=== PATIENT | male | born 1930 | race Caucasian/White ===

== ENCOUNTER 2018-05-27 18:04 | Inpatient (IN) ==
[2018-05-27] MEDS: rOPINIRole 1 MG TABLET PO SCH (21:24)
[2018-05-27] MEDS: Carbidopa/Levodopa 25/100 TABLET PO SCH (21:24)
[2018-05-27] MEDS: diazePAM 5 MG TABLET PO SCH (21:24)
[2018-05-27] MEDS: Mirtazapine 15 MG TABLET PO SCH (21:24)
[2018-05-28] MEDS: rOPINIRole 1 MG TABLET PO SCH ×3 (11:02→20:09)
[2018-05-28] MEDS: Loratadine 10 MG TABLET PO SCH (11:02)
[2018-05-28] MEDS: Metoprolol XL (24 HR) Succ 25 MG TAB.ER.24H PO SCH (11:02)
[2018-05-28] MEDS: Spironolactone 25 MG TABLET PO SCH (11:02)
[2018-05-28] MEDS: Fluticasone Propionate Nasal 50 MCG/SPRAY BOTTLE NS SCH (11:02)
[2018-05-28] MEDS: Carbidopa/Levodopa 25/100 TABLET PO SCH ×3 (11:02→20:08)
--- NOTE | 2018-05-28 12:17 | Internal Med History&Physical ---
Date of Encounter: 05/28/18 Time of Encounter: 11:45 Assessment and Plan (1) Hematuria Current visit: No Status: Acute Presently resolved. Continue indwelling Talamantes and follow up with urology as scheduled. Qualifiers: Hematuria type: unspecified type Qualified Code(s): R31.9 - Hematuria, unspecified (2) Enlarged prostate Current visit: No Status: Acute Continue Flomax and Proscar (3) General weakness Current visit: No Status: Acute PT and OT evaluation with ongoing interventions have been ordered (4) HTN (hypertension) Current visit: No Status: Acute Continue Cozaar, Toprol, and Aldactone. Qualifiers: Hypertension type: essential hypertension Qualified Code(s): I10 - Essential (primary) hypertension (5) Anemia Current visit: Yes Status: Acute Acute blood loss etiology. Hemoglobin normal at 13.5 on May 22. Continue to monitor labs. Qualifiers: Anemia type: unspecified type Qualified Code(s): D64.9 - Anemia, unspecified (6) Dysphagia Current visit: Yes Status: Acute Patient states he coughs when eating. Will order ST evaluation. Qualifiers: Dysphagia type: unspecified Qualified Code(s): R13.10 - Dysphagia, unspecified Internal Medicine - H&P: HPI Chief complaint: Hematuria Admitted From: Hospital to Hospital Transfer Plans for Post Hospital Care: Home History of present illness: Mr. Toro is a 87 year old male who was transferred to [facility] swing bed after May 22-May 27 [facility] stay for hematuria. He had cystoscopy and CBI initially. Urine culture was negative. Irrigation was discontinued and hematuria remained resolved. He was discharged to swing bed for rehabilitation therapy prior to returning to independent living at home. He is a fair to good historian. He does not remember some details of his history. He denies previous episode of hematuria. He has BPH but denies prostate cancer or other kidney or bladder disorders. Past Med Surg Social Fam HX - Past Medical History Medical history: hyperlipidemia, hypertension, myocardial infarction Additional medical history: unknown Psychiatric history: no psych history - Past Surgical History Surgical History: prostatectomy Additional surgical history: Cardiac stent x2, prostate sx - Social History Smoking Status: Former smoker Smokeless Tobacco Status: No Alcohol use: none Drug use: none - Family History Father Adopted: No Family Member Ethnicity: Non- Living Status: Hx Family Cardiac Disorders: No Hx Family Respiratory Disorders: Yes (BLACK LUNG) Hx Family Cancer: Yes (PROSTATE) Hx Family GI Disorders: No Hx Family Endocrine Disorder: No Hx Family Neuromuscular Disorders: No Hx Family Neurologic Disorders: No Hx Family HEENT Disorders: No Hx Family Autoimmune Disorders: No Internal Medicine - H&P: Meds Atorvastatin [Lipitor] 40 mg PO HS 05/22/18 [History] Carbidopa/Levodopa 25/100 [Sinemet 25/100] 1 tab PO TID 05/22/18 [History] Fluticasone Propionate Nasal [Flonase] 2 spr NS DAILY 05/22/18 [History] Loratadine [Allergy Relief] 10 mg PO DAILY 05/22/18 [History] Losartan [Cozaar] 25 mg PO DAILY 05/22/18 [History] Metoprolol Succinate [Toprol Xl] 25 mg PO DAILY 05/22/18 [History] Mirtazapine [Remeron] 45 mg PO HS 05/22/18 [History] Montelukast [Singulair] 10 mg PO DAILY 05/22/18 [History] Pantoprazole Sodium [Protonix] 40 mg PO DAILY 05/22/18 [History] Ropinirole HCl [Requip] 2 mg PO TID 05/22/18 [History] Spironolactone [Aldactone] 25 mg PO DAILY 05/22/18 [History] Tamsulosin HCl [Flomax] 0.4 mg PO DAILY 05/22/18 [History] diazePAM [Valium] 5 mg PO HS 05/22/18 [History] 3 Allergy/AdvReac Type Severity Reaction Status Date / Time No Known Allergies Allergy Verified 12/30/16 14:23 All Systems PM: A 10-system review of systems was performed and is negative for pertinent findings except as documented above in the HPI. Review of systems: Gen.: He states his weight has been stable the past few months Cardiovascular: He has history of hypertension. He had non-STEMI February 2015 with 2 LAD stents placed at [facility]. He denies heart failure DVT or pulmonary embolus. Respiratory: He smoked minimally in his 30s for approximately 3 years never exceeding 10 cigarettes per day. He denies chronic lung disease. He does not use home oxygen. GI: He denies disorders of his liver gallbladder or exocrine pancreas. : As per history of present illness Neurologic: He denies large distribution strokes or seizures. Endocrine: He denies diabetes thyroid disease or hyperlipidemia Hematology/oncology: He denies blood disorders cancers or anemia Psychiatric: He feels depressed since his and son within the past year. He denies other mental health diagnosis. [place] skeletal: He denies arthritis gout or other bone joint or muscle disorders. - Constitutional Vitals: Temp Pulse Resp BP Pulse Ox 98.5 F 60 18 146/71 94 05/28/18 07:37 05/28/18 07:37 05/28/18 07:37 05/28/18 07:37 05/28/18 07:37 Exam: Gen.: He is a well-developed well-nourished male resting comfortably in bed who appears in no acute distress HEENT: Head is atraumatic and normocephalic. Eyes: EOMI. There is no scleral icterus. Mouth: Mucosa is moist. Neck: Supple and nontender. There is no thyromegaly or adenopathy noted. Heart: Regular without murmurs gallops or ectopics Lungs: No wheezes or crackles are heard. Abdomen: Soft and nontender. No masses or guarding are noted. Extremities: There is no cyanosis edema or clubbing noted. Dorsalis pedis and posttibial pulses are 1-2 over 2 bilaterally. Neurologic: Mental status: He is talkative and a fair to good historian. Cranial nerves: Smile is symmetric. Forehead wrinkles bilaterally. Tongue protrudes midline. EOMI. Motor: There is no pronator drift. There is no tremor of his arms or hands. Cerebellar: Finger to nose is intact bilaterally. Skin: Warm and dry
[2018-05-28] MEDS: Mirtazapine 15 MG TABLET PO SCH (20:09)
[2018-05-28] MEDS: diazePAM 5 MG TABLET PO SCH (20:09)
[2018-05-29] MEDS: rOPINIRole 1 MG TABLET PO SCH ×3 (10:10→20:19)
[2018-05-29] MEDS: Spironolactone 25 MG TABLET PO SCH (10:11)
[2018-05-29] MEDS: Loratadine 10 MG TABLET PO SCH (10:11)
[2018-05-29] MEDS: Metoprolol XL (24 HR) Succ 25 MG TAB.ER.24H PO SCH (10:11)
[2018-05-29] MEDS: Carbidopa/Levodopa 25/100 TABLET PO SCH ×3 (10:11→20:18)
[2018-05-29] MEDS: Fluticasone Propionate Nasal 50 MCG/SPRAY BOTTLE NS SCH (10:18)
--- NOTE | 2018-05-29 12:53 | Internal Med Progress Note ---
Date of Encounter: 05/29/18 Time of Encounter: 12:45 - Assessment and plan (1) Hematuria Current Visit: No Status: Acute Assessment and plan: May 29. Remains resolved. Continue Talamantes a follow-up urology as scheduled. Qualifiers: Hematuria type: unspecified type Qualified Code(s): R31.9 - Hematuria, unspecified (2) Enlarged prostate Current Visit: No Status: Acute Assessment and plan: May 29. Continue Flomax and Proscar (3) General weakness Current Visit: No Status: Acute Assessment and plan: May 29. Continue therapy intervention (4) HTN (hypertension) Current Visit: No Status: Acute Assessment and plan: May 29. Continue Cozaar, Toprol, and Aldactone Qualifiers: Hypertension type: essential hypertension Qualified Code(s): I10 - Essential (primary) hypertension (5) Anemia Current Visit: Yes Status: Acute Assessment and plan: May 29. Acute blood loss etiology. Hemoglobin normal at 13.5 on May 22. Recheck labs in a.m. Qualifiers: Anemia type: unspecified type Qualified Code(s): D64.9 - Anemia, unspecified (6) Dysphagia Current Visit: Yes Status: Acute Assessment and plan: May 29. As per ST. Qualifiers: Dysphagia type: unspecified Qualified Code(s): R13.10 - Dysphagia, unspecified - Subjective Interval history: May 29. He has no new complaints. He was evaluated by ST with diet changes made. He inquired about duration of Talamantes catheter. - Constitutional Vitals: Temp Pulse Resp BP Pulse Ox 98.4 F 78 16 128/73 97 05/29/18 08:53 05/29/18 08:53 05/29/18 08:53 05/29/18 08:53 05/29/18 08:53 Exam: He is resting comfortably in bed and appears in no acute distress. His affect is overall cheerful. I reviewed his medications and lab results. Urine in Talamantes bag shows no visible hematuria. Consult Discharge Plan - Plan Referrals: Kei Duque MD [Primary Care Provider] - 1 week
[2018-05-29] MEDS: diazePAM 5 MG TABLET PO SCH (20:18)
[2018-05-29] MEDS: Mirtazapine 15 MG TABLET PO SCH (20:19)
[2018-05-30] MEDS: Carbidopa/Levodopa 25/100 TABLET PO SCH ×3 (09:24→21:06)
[2018-05-30] MEDS: Loratadine 10 MG TABLET PO SCH (09:24)
[2018-05-30] MEDS: Metoprolol XL (24 HR) Succ 25 MG TAB.ER.24H PO SCH (09:24)
[2018-05-30] MEDS: Spironolactone 25 MG TABLET PO SCH (09:24)
[2018-05-30] MEDS: rOPINIRole 1 MG TABLET PO SCH ×3 (09:24→21:08)
[2018-05-30] MEDS: Fluticasone Propionate Nasal 50 MCG/SPRAY BOTTLE NS SCH (09:25)
[2018-05-30] MEDS: diazePAM 5 MG TABLET PO SCH (21:06)
[2018-05-30] MEDS: Mirtazapine 15 MG TABLET PO SCH (21:08)
[2018-05-31] MEDS: Metoprolol XL (24 HR) Succ 25 MG TAB.ER.24H PO SCH (07:59)
[2018-05-31] MEDS: Loratadine 10 MG TABLET PO SCH (07:59)
[2018-05-31] MEDS: Carbidopa/Levodopa 25/100 TABLET PO SCH ×3 (07:59→20:45)
[2018-05-31] MEDS: Spironolactone 25 MG TABLET PO SCH (07:59)
[2018-05-31] MEDS: rOPINIRole 1 MG TABLET PO SCH ×3 (07:59→20:46)
[2018-05-31] MEDS: Fluticasone Propionate Nasal 50 MCG/SPRAY BOTTLE NS SCH (08:01)
--- NOTE | 2018-05-31 17:04 | Internal Med Progress Note ---
Date of Encounter: 05/31/18 Time of Encounter: 16:55 - Assessment and plan (1) Hematuria Current Visit: No Status: Acute Assessment and plan: May 29. Remains resolved. Continue Talamantes a follow-up urology as scheduled. Qualifiers: Hematuria type: unspecified type Qualified Code(s): R31.9 - Hematuria, unspecified (2) Enlarged prostate Current Visit: No Status: Acute Assessment and plan: May 29. Continue Flomax and Proscar (3) General weakness Current Visit: No Status: Acute Assessment and plan: May 29. Continue therapy intervention (4) HTN (hypertension) Current Visit: No Status: Acute Assessment and plan: May 29. Continue Cozaar, Toprol, and Aldactone Qualifiers: Hypertension type: essential hypertension Qualified Code(s): I10 - Essential (primary) hypertension (5) Anemia Current Visit: Yes Status: Acute Assessment and plan: May 29. Acute blood loss etiology. Hemoglobin normal at 13.5 on May 22. Recheck labs in a.m. May 31. Recheck labs in a.m. Qualifiers: Anemia type: unspecified type Qualified Code(s): D64.9 - Anemia, unspecified (6) Dysphagia Current Visit: Yes Status: Acute Assessment and plan: May 29. As per ST. Qualifiers: Dysphagia type: unspecified Qualified Code(s): R13.10 - Dysphagia, unspecified - Subjective Interval history: May 29. He has no new complaints. He was evaluated by ST with diet changes made. He inquired about duration of Talamantes catheter. May 31. He has no new complaints. - Constitutional Vitals: Temp Pulse Resp BP Pulse Ox 98.1 F 50 16 107/56 94 05/31/18 08:00 05/31/18 08:00 05/31/18 08:00 05/31/18 08:00 05/31/18 08:00 Exam: He is sitting on the side of bed eating supper. He has frequent coughing with swallowing. His affect is cheerful. I reviewed his medications and lab results. Consult Discharge Plan - Plan Referrals: Kei Duque MD [Primary Care Provider] - 1 week
[2018-05-31] MEDS: diazePAM 5 MG TABLET PO SCH (20:45)
[2018-05-31] MEDS: Mirtazapine 15 MG TABLET PO SCH (20:45)
[2018-06-01 06:27] LABS: Basophils % 0.7 %; Eosinophils # 0.2 K/mcL (0.0-0.6); Eosinophils % 3.8 %; Hematocrit 34.6 % (37.5-50.1); Hemoglobin 11.7 g/dL (12.9-16.9); Immature Granulocytes % 0.3 % (0-4); Lymphocytes # 1.6 K/mcL (0.6-4.6); Lymphocytes % 27.7 %; Mean Corpuscular HGB Conc 33.8 g/dL (31.6-35.5); Mean Corpuscular Hemoglobin 31.6 pg (28.0-33.3); Mean Corpuscular Volume 93.5 fL (83.0-100.0); Mean Platelet Volume 9.6 fL (9.4-12.4); Monocytes # 0.6 K/mcL (0.0-1.3); Monocytes % 9.4 %; Neutrophils # 3.4 K/mcL (1.6-8.9); Platelet Count 226 K/mcL (140-400); Red Cell Distribution Width 12.3 % (11.5-14.5); Segmented Neutrophils % 58.1 %
[2018-06-01 06:48] LABS: BUN/Creatinine Ratio 15 (6-26); Blood Urea Nitrogen 17 mg/dL (8-23); Calcium 8.8 mg/dL (8.6-10.3); Carbon Dioxide 30 mEq/L (23-29); Chloride 99 mEq/L (98-107); Chol/HDL Ratio 2.3 (0-4.9); Cholesterol 112 mg/dL (< 200); Glucose 102 mg/dL (70-105); HDL Cholesterol 48 mg/dL (40-59); LDL Cholesterol,Calculated 50 mg/dL (0-99); Osmolality,Calculated 276 (280-300); Potassium 4.1 mEq/L (3.5-5.1); Sodium 132 mEq/L (136-145); Triglycerides 71 mg/dL (< 150); eGFR For Non-African Americans 60 (> 60)
[2018-06-01] MEDS: Loratadine 10 MG TABLET PO SCH (09:24)
[2018-06-01] MEDS: Metoprolol XL (24 HR) Succ 25 MG TAB.ER.24H PO SCH (09:24)
[2018-06-01] MEDS: Spironolactone 25 MG TABLET PO SCH (09:25)
[2018-06-01] MEDS: rOPINIRole 1 MG TABLET PO SCH ×3 (09:25→20:50)
[2018-06-01] MEDS: Carbidopa/Levodopa 25/100 TABLET PO SCH ×3 (09:25→20:50)
[2018-06-01] MEDS: Fluticasone Propionate Nasal 50 MCG/SPRAY BOTTLE NS SCH (09:26)
[2018-06-01] MEDS: diazePAM 5 MG TABLET PO SCH (20:49)
[2018-06-01] MEDS: Mirtazapine 15 MG TABLET PO SCH (20:50)
[2018-06-02] MEDS: rOPINIRole 1 MG TABLET PO SCH ×3 (10:54→21:25)
[2018-06-02] MEDS: Metoprolol XL (24 HR) Succ 25 MG TAB.ER.24H PO SCH (10:54)
[2018-06-02] MEDS: Carbidopa/Levodopa 25/100 TABLET PO SCH ×3 (10:54→21:25)
[2018-06-02] MEDS: Loratadine 10 MG TABLET PO SCH (10:54)
[2018-06-02] MEDS: Spironolactone 25 MG TABLET PO SCH (10:54)
[2018-06-02] MEDS: Fluticasone Propionate Nasal 50 MCG/SPRAY BOTTLE NS SCH (16:43)
[2018-06-02] MEDS: diazePAM 5 MG TABLET PO SCH (21:26)
[2018-06-02] MEDS: Mirtazapine 15 MG TABLET PO SCH (21:26)
[2018-06-03] MEDS: Loratadine 10 MG TABLET PO SCH (09:05)
[2018-06-03] MEDS: Carbidopa/Levodopa 25/100 TABLET PO SCH ×3 (09:05→21:18)
[2018-06-03] MEDS: Fluticasone Propionate Nasal 50 MCG/SPRAY BOTTLE NS SCH (09:05)
[2018-06-03] MEDS: rOPINIRole 1 MG TABLET PO SCH ×3 (09:06→21:22)
--- NOTE | 2018-06-03 17:01 | Internal Med Progress Note ---
Date of Encounter: 06/03/18 Time of Encounter: 16:54 - Assessment and plan (1) Hematuria Current Visit: No Status: Acute Assessment and plan: May 29. Remains resolved. Continue Talamantes a follow-up urology as scheduled. June 03. Talamantes removed as per above. Qualifiers: Hematuria type: unspecified type Qualified Code(s): R31.9 - Hematuria, unspecified (2) Enlarged prostate Current Visit: No Status: Acute Assessment and plan: May 29. Continue Flomax and Proscar (3) General weakness Current Visit: No Status: Acute Assessment and plan: May 29. Continue therapy intervention (4) HTN (hypertension) Current Visit: No Status: Acute Assessment and plan: May 29. Continue Cozaar, Toprol, and Aldactone June 03. Medications discontinued yesterday because of hypotension. Blood pressure has risen to a satisfactory range. Qualifiers: Hypertension type: essential hypertension Qualified Code(s): I10 - Essential (primary) hypertension (5) Anemia Current Visit: Yes Status: Acute Assessment and plan: May 29. Acute blood loss etiology. Hemoglobin normal at 13.5 on May 22. Recheck labs in a.m. May 31. Recheck labs in a.m. June 03. Hemoglobin slightly improved to 11.7. Continue present regimen. Qualifiers: Anemia type: unspecified type Qualified Code(s): D64.9 - Anemia, unspecified (6) Dysphagia Current Visit: Yes Status: Acute Assessment and plan: May 29. As per ST. Qualifiers: Dysphagia type: unspecified Qualified Code(s): R13.10 - Dysphagia, unspecified - Subjective Interval history: May 29. He has no new complaints. He was evaluated by ST with diet changes made. He inquired about duration of Talamantes catheter. May 31. He has no new complaints. June 03. He has no new complaints and feels well. The Talamantes catheter was removed by urology at the office visit 2 days ago. He is voiding satisfactorily without visible hematuria. - Constitutional Vitals: Temp Pulse Resp BP Pulse Ox 98.1 F 60 16 118/62 96 06/03/18 07:16 06/03/18 07:16 06/03/18 07:16 06/03/18 07:16 06/03/18 07:16 Exam: He is resting comfortably in bed and appears in no acute distress. His affect is bright and cheerful. I reviewed his medications and lab results. Internal Medicine: Result - Labs CBC & Chem 7: 06/01/18 05:10 06/01/18 05:10 Consult Discharge Plan - Plan Referrals: Kei Duque MD [Primary Care Provider] - 1 week
[2018-06-03] MEDS: Mirtazapine 15 MG TABLET PO SCH (21:22)
[2018-06-03] MEDS: diazePAM 5 MG TABLET PO SCH (21:22)
[2018-06-04 07:13] VITALS: BP 144/71
[2018-06-04] MEDS: Loratadine 10 MG TABLET PO SCH (08:12)
[2018-06-04] MEDS: Fluticasone Propionate Nasal 50 MCG/SPRAY BOTTLE NS SCH (08:12)
[2018-06-04] MEDS: rOPINIRole 1 MG TABLET PO SCH (08:12)
[2018-06-04] MEDS: Carbidopa/Levodopa 25/100 TABLET PO SCH (08:12)
--- NOTE | 2018-06-04 10:23 | Discharge Summary ---
Date of Encounter: 06/04/18 Time of Encounter: 10:15 - Discharge Diagnosis (1) Hematuria Priority: Primary Status: Resolved Qualifiers: Hematuria type: unspecified type Qualified Code(s): R31.9 - Hematuria, unspecified (2) Enlarged prostate Priority: Secondary Status: Chronic (3) General weakness Priority: Secondary Status: Chronic (4) HTN (hypertension) Priority: Secondary Status: Chronic Qualifiers: Hypertension type: essential hypertension Qualified Code(s): I10 - Essential (primary) hypertension (5) Anemia Priority: Secondary Status: Acute Qualifiers: Anemia type: unspecified type Qualified Code(s): D64.9 - Anemia, unspecified (6) Dysphagia Priority: Secondary Status: Chronic Qualifiers: Dysphagia type: unspecified Qualified Code(s): R13.10 - Dysphagia, unspecified Hospital course: Mr. Toro is a 87 year old male who was transferred to [facility] swing bed after May 22-May 27 [facility] stay for hematuria. He had cystoscopy and CBI initially. Urine culture was negative. Irrigation was discontinued and hematuria remained resolved. He was discharged to swing bed for rehabilitation therapy prior to returning to independent living at home. Initial orders were written by the discharging physicians at [facility]. I saw him on May 28 and performed a swing bed history and physical. The Talamantes catheter was removed during a visit with urology. He had no further visible hematuria and was able to void satisfactorily. Blood pressure showed hypotension so Cozaar Toprol and Aldactone were held. He will restart Toprol at discharge but remain off Cozaar and Aldactone. Speech/swallowing evaluation with ongoing intervention was done and he made some improvements in dysphagia. He was also seen by physical therapy and occupational therapy with satisfactory improvement during his swing bed stay. On June 04 he was stable for discharge home. He will follow with his PCP within 1 week. - Time Spent with Patient Total time spent providing and/or coordinating discharge services: - Discharge Medications Home Medications: Atorvastatin [Lipitor] 40 mg PO HS 05/22/18 [History] Carbidopa/Levodopa 25/100 [Sinemet 25/100] 1 tab PO TID 05/22/18 [History] Fluticasone Propionate Nasal [Flonase] 2 spr NS DAILY 05/22/18 [History] Loratadine [Allergy Relief] 10 mg PO DAILY 05/22/18 [History] Metoprolol Succinate [Toprol Xl] 25 mg PO DAILY 05/22/18 [History] Mirtazapine [Remeron] 45 mg PO HS 05/22/18 [History] Montelukast [Singulair] 10 mg PO DAILY 05/22/18 [History] Pantoprazole Sodium [Protonix] 40 mg PO DAILY 05/22/18 [History] Ropinirole HCl [Requip] 2 mg PO TID 05/22/18 [History] Tamsulosin HCl [Flomax] 0.4 mg PO DAILY 05/22/18 [History] diazePAM [Valium] 5 mg PO HS 05/22/18 [History] Allergies/Adverse Reactions: 3 Allergy/AdvReac Type Severity Reaction Status Date / Time No Known Allergies Allergy Verified 12/30/16 14:23 Date of admission: 05/27/18 19:30 Primary care physician: Kei Duque MD Consults: 05/27/18 19:03 Consult to Occupational Therapy [CONS] Routine Comment: Evaluate, develop and implement POC Reason for Consult: weakness Does patient have active BEDREST order?: No Is patient medically & hemodynamically stable?: Yes Consult to Physical Therapy [CONS] Routine Comment: Evaluate, develop and implement POC Reason for Consult: weakness Does patient have active BEDREST order?: No Is patient medically & hemodynamically stable?: Yes 05/28/18 10:51 Consult to Speech Therapy [CONS] Routine Comment: Evaluate, develop and implement POC Reason for Consult: cognitive impairment, dysarthria Call Completed: No - Constitutional Vitals: Temp Pulse Resp BP Pulse Ox 97.5 F L 71 14 144/71 95 06/04/18 07:10 06/04/18 07:10 06/04/18 07:10 06/04/18 07:10 06/04/18 07:10 - Patient Status Disposition: Home Health Service - Discharge Instructions Follow Up With: Kei Duque MD [Primary Care Provider] - 1 week - Diet and Activity Activity: as per physical therapy Diet: other (Soft diet with no straws.)
--- NOTE | 2018-06-04 10:31 | Physician Discharge Referral ---
Home Health/Hosp Referral Info Transfer to: Home Health Attending Provider: Gavin Provider in Charge Post Discharge: PCP [place]) - Diagnosis (1) Hematuria Priority: Primary Status: Resolved (2) Enlarged prostate Priority: Secondary Status: Chronic (3) General weakness Priority: Secondary Status: Chronic (4) HTN (hypertension) Priority: Secondary Status: Chronic (5) Anemia Priority: Secondary Status: Acute (6) Dysphagia Priority: Secondary Status: Chronic - Respiratory Orders Smoking Cessation: Smoking cessation has been advised. For more information, call the [place] Tobacco Quit Line at 0-405-YOJM-NOW. - Diet/Nutrition Diet/Nutrition Orders: Mechanical Soft (No straws) - Activity Activity Orders: Ambulate - Services Needed Following services are medically necessary services: Nursing, Home Health Aide, Physical Therapy, Occupational Therapy - Transfer Medications Home Medications: Atorvastatin [Lipitor] 40 mg PO HS 05/22/18 [History] Carbidopa/Levodopa 25/100 [Sinemet 25/100] 1 tab PO TID 05/22/18 [History] Fluticasone Propionate Nasal [Flonase] 2 spr NS DAILY 05/22/18 [History] Loratadine [Allergy Relief] 10 mg PO DAILY 05/22/18 [History] Metoprolol Succinate [Toprol Xl] 25 mg PO DAILY 05/22/18 [History] Mirtazapine [Remeron] 45 mg PO HS 05/22/18 [History] Montelukast [Singulair] 10 mg PO DAILY 05/22/18 [History] Pantoprazole Sodium [Protonix] 40 mg PO DAILY 05/22/18 [History] Ropinirole HCl [Requip] 2 mg PO TID 05/22/18 [History] Tamsulosin HCl [Flomax] 0.4 mg PO DAILY 05/22/18 [History] diazePAM [Valium] 5 mg PO HS 05/22/18 [History] Allergies/Adverse Reactions: 3 Allergy/AdvReac Type Severity Reaction Status Date / Time No Known Allergies Allergy Verified 12/30/16 14:23 Certification: Further, I certify that my clinical findings support that this patient is homebound (i.e. absences from home require considerable and taxing effort and are for medical reasons or congregational services or infrequently or short duration when for other reasons) because: Homebound Reason: Leaving home requires considerable and taxing effort due to condition (Impaired walking ability, anemia) Attestation: My signature below is to certify that this patient is under my care and that I, or nurse practitioner, or a physician's assistant golf course superintendent working with me, has a face-to -face encounter with this patient.
== END 2018-06-04 11:50 | disposition home health service (06) | DRG 945 ==
LOC: INPPIK 19:30
PROVIDERS: ADMIT Internal Medicine; ATTEND Internal Medicine

== ENCOUNTER 2019-01-18 15:10 | Inpatient (IN) ==
[2019-01-18] MEDS ORDERED: Nitroglycerin 0.4 MG TAB.SUBL SL PRN (16:23)
[2019-01-18] MEDS: Nitrofurantoin (BID) 100 MG CAPSULE PO SCH (21:30)
[2019-01-18] MEDS: Carbidopa/Levodopa 25/100 TABLET PO SCH (21:30)
[2019-01-18] MEDS: Mirtazapine 15 MG TABLET PO SCH (21:30)
[2019-01-18] MEDS: rOPINIRole 1 MG TABLET PO SCH (21:30)
[2019-01-18] MEDS: (Ipratropium/Albuterol Sulfate [Combivent Respimat 20 IH SCH (23:18)
[2019-01-19] MEDS: (Ipratropium/Albuterol Sulfate [Combivent Respimat 20 IH SCH ×5 (02:15→21:06)
[2019-01-19 06:15] LABS: Basophils % 0.4 %; Eosinophils # 0.2 K/mcL (0.0-0.6); Eosinophils % 2.5 %; Hematocrit 39.8 % (37.5-50.1); Hemoglobin 12.8 g/dL (12.9-16.9); Immature Granulocytes % 0.6 % (0-4); Lymphocytes # 1.2 K/mcL (0.6-4.6); Lymphocytes % 14.4 %; Mean Corpuscular HGB Conc 32.2 g/dL (31.6-35.5); Mean Corpuscular Hemoglobin 29.2 pg (28.0-33.3); Mean Corpuscular Volume 90.9 fL (83.0-100.0); Mean Platelet Volume 10.2 fL (9.4-12.4); Monocytes # 0.6 K/mcL (0.0-1.3); Monocytes % 6.5 %; Neutrophils # 6.5 K/mcL (1.6-8.9); Platelet Count 251 K/mcL (140-400); Red Blood Count 4.38 M/mcL (4.19-5.50); Segmented Neutrophils % 75.6 %
[2019-01-19 06:32] LABS: INR 1.2
[2019-01-19] MEDS: Carbidopa/Levodopa 25/100 TABLET PO SCH ×3 (08:09→21:06)
[2019-01-19] MEDS: Spironolactone 25 MG TABLET PO SCH (08:10)
[2019-01-19] MEDS: levoFLOXacin 500 MG TABLET PO SCH (08:10)
[2019-01-19] MEDS: rOPINIRole 1 MG TABLET PO SCH ×3 (08:10→21:06)
[2019-01-19] MEDS: Nitrofurantoin (BID) 100 MG CAPSULE PO SCH ×2 (08:13→21:07)
[2019-01-19] MEDS: Fluticasone Propionate Nasal 50 MCG/SPRAY BOTTLE NS SCH (08:14)
--- NOTE | 2019-01-19 17:31 | Internal Med History&Physical ---
Date of Encounter: 01/19/19 Time of Encounter: 17:00 Assessment and Plan (1) Pneumonia Current visit: No Status: Acute Continue Levaquin through 01/20/2019. Add lactobacillus. Qualifiers: Pneumonia type: due to unspecified organism Laterality: bilateral Lung location: unspecified part of lung Qualified Code(s): J18.9 - Pneumonia, unspecified organism (2) UTI (urinary tract infection) due to Enterococcus Current visit: No Status: Acute Continue Macrobid through 01/28/2019. (3) Enlarged prostate Current visit: No Status: Chronic Continue Flomax and Proscar (4) General weakness Current visit: No Status: Chronic PT and OT evaluations with ongoing intervention have been ordered. (5) HTN (hypertension) Current visit: No Status: Chronic Continue Aldactone and monitor labs. Qualifiers: Hypertension type: essential hypertension Qualified Code(s): I10 - Essential (primary) hypertension (6) Anemia Current visit: No Status: Acute Anemia testing will be done in a.m. Qualifiers: Anemia type: unspecified type Qualified Code(s): D64.9 - Anemia, unspecified Internal Medicine - H&P: HPI Chief complaint: Pneumonia, weakness, UTI Admitted From: Hospital to Hospital Transfer Plans for Post Hospital Care: Home History of present illness: Mr. Toro is a 88 year old male who was transferred to [facility] swing bed following January 13 [facility] stay for pneumonia and UTI with hematuria. Urine culture showed Enterococcus faecalis. He was felt to have enlarged prostate and Proscar was added to Flomax. He was treated with IV vancomycin and Zosyn for pneumonia. He was discharged to swing bed on Levaquin and Macrobid. history is pertinent otherwise for prostatic enlargement with greenlight photo vaporization 2011. He was hospitalized to [facility] swing bed May 2018 following a hospitalization at [facility] for hematuria. Cystoscopy was done during the [facility] stay. Past Med Surg Social Fam HX - Past Medical History Medical history: GERD, hyperlipidemia, hypertension, myocardial infarction Additional medical history: parkinson's Psychiatric history: no psych history - Past Surgical History Surgical History: prostatectomy Additional surgical history: Cardiac stent x2, prostate sx - Social History Smoking Status: Former smoker Smokeless Tobacco Status: No Alcohol use: none Drug use: none - Family History Father Adopted: No Family Member Ethnicity: Non- Living Status: Hx Family Cardiac Disorders: No Hx Family Respiratory Disorders: Yes (BLACK LUNG) Hx Family Cancer: Yes (PROSTATE) Hx Family GI Disorders: No Hx Family Endocrine Disorder: No Hx Family Neuromuscular Disorders: No Hx Family Neurologic Disorders: No Hx Family HEENT Disorders: No Hx Family Autoimmune Disorders: No Internal Medicine - H&P: Meds Atorvastatin [Lipitor] 40 mg PO DAILY 05/22/18 [History] Carbidopa/Levodopa 25/100 [Sinemet 25/100] 2 tab PO TID 05/22/18 [History] Fluticasone Propionate Nasal [Flonase] 2 spr NS DAILY 05/22/18 [History] Loratadine [Allergy Relief] 10 mg PO DAILY 05/22/18 [History] Metoprolol Succinate [Toprol Xl] 25 mg PO DAILY 05/22/18 [History] Montelukast [Singulair] 10 mg PO DAILY 05/22/18 [History] Pantoprazole Sodium [Protonix] 40 mg PO DAILY 05/22/18 [History] Ropinirole HCl [Requip] 2 mg PO TID 05/22/18 [History] Tamsulosin HCl [Flomax] 0.4 mg PO DAILY 05/22/18 [History] Ipratropium/Albuterol Sulfate [Combivent Respimat 20-100 Mcg] 2 puff IH QID 01/13/19 [History] Losartan Potassium 25 mg PO DAILY 01/13/19 [History] Mirtazapine 45 mg PO HS 01/13/19 [History] Nitroglycerin 0.4 mg SL Q5M PRN 01/13/19 [History] Spironolactone [Aldactone] 25 mg PO DAILY 01/13/19 [History] Levofloxacin [Levaquin] 500 mg PO DAILY 2 Days #2 tablet 01/18/19 [Rx] Nitrofurantoin (BID) [Macrobid] 100 mg PO BID 10 Days #20 capsule 01/18/19 [Rx] diazePAM [Valium] 5 mg PO HS 3 Days #3 tablet 01/18/19 [Rx] Allergy/AdvReac Type Severity Reaction Status Date / Time No Known Allergies Allergy Verified 12/30/16 14:23 All Systems PM: A 10-system review of systems was performed and is negative for pertinent findings except as documented above in the HPI. Review of systems: Review of systems from his May 2018 [facility] swing bed stay were reviewed and revised as below. He is a challenging historian due to impaired speech and probable dementia. Gen.: His weight has been stable at approximate 68 kg since May 2018 hospitalization. Cardiovascular: He has history of hypertension. He had non-STEMI February 2015 with 2 LAD stents placed at [facility]. He denies heart failure DVT or pulmonary embolus. Respiratory: He smoked minimally in his 30s for approximately 3 years never exceeding 10 cigarettes per day. He denies chronic lung disease. He does not use home oxygen. GI: He denies disorders of his liver gallbladder or exocrine pancreas. : As per history of present illness Neurologic: He denies large distribution strokes or seizures. Endocrine: He denies diabetes thyroid disease or hyperlipidemia Hematology/oncology: He denies blood disorders cancers or anemia Psychiatric: He feels depressed since his and son within the past year. He denies other mental health diagnosis. [place] skeletal: He denies arthritis gout or other bone joint or muscle disorders. - Constitutional Vitals: Temp Pulse Resp BP Pulse Ox 97.4 F L 68 20 131/73 95 01/19/19 06:53 01/19/19 06:53 01/19/19 06:53 01/19/19 06:53 01/19/19 06:53 Exam: Gen.: He is a well-developed well-nourished male resting comfortably in bed who appears in no acute distress. He denies pain but states he is slightly dyspneic HEENT: Head is atraumatic and normocephalic. Eyes: EOMI. There is no scleral icterus. Mouth: Mucosa is moist. Neck: Supple and nontender. There is no thyromegaly or adenopathy noted. Heart: Regular without murmurs gallops or ectopics Lungs: No wheezes or crackles are heard. Abdomen: Soft and nontender. No masses or guarding are noted. Extremities: There is no cyanosis edema or clubbing noted. Dorsalis pedis and posterior tibial pulses are trace to 1+ palpable bilaterally. 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 Neurologic: Mental status: He answers a few questions with short answers but is a fair to poor historian. His speech is difficult to understand. He does not recall many details of his past history. Cranial nerves: Smile is symmetric. Forehead wrinkles bilaterally. Tongue protrudes midline. EOMI. Motor: There is no pronator drift. There is no cogwheeling or rigidity on passive range of motion of his wrist or elbows. Cerebellar: Finger to nose is intact bilaterally. Skin: Warm and dry Internal Med - H&P Results - Labs CBC & Chem 7: 01/19/19 04:50 Labs: Short CBC 01/19/19 Range/Units 04:50 WBC 8.5 (4.3-11.1) K/mcL Hgb 12.8 L (12.9-16.9) g/dL Hct 39.8 (37.5-50.1) % Plt Count 251 (140-400) K/mcL Neutrophils # 6.5 (1.6-8.9) K/mcL
[2019-01-19] MEDS: Lactobacillus 1 EACH CAP.SPRINK PO SCH (21:06)
[2019-01-19] MEDS: Mirtazapine 15 MG TABLET PO SCH (21:53)
[2019-01-20 05:23] LABS: Basophils % 0.4 %; Eosinophils # 0.2 K/mcL (0.0-0.6); Eosinophils % 2.1 %; Hematocrit 39.6 % (37.5-50.1); Hemoglobin 12.9 g/dL (12.9-16.9); Immature Granulocytes % 0.6 % (0-4); Lymphocytes # 1.2 K/mcL (0.6-4.6); Lymphocytes % 15.3 %; Mean Corpuscular HGB Conc 32.6 g/dL (31.6-35.5); Mean Corpuscular Hemoglobin 29.5 pg (28.0-33.3); Mean Corpuscular Volume 90.4 fL (83.0-100.0); Mean Platelet Volume 10.1 fL (9.4-12.4); Monocytes # 0.5 K/mcL (0.0-1.3); Monocytes % 6.6 %; Platelet Count 255 K/mcL (140-400); Red Blood Count 4.38 M/mcL (4.19-5.50)
[2019-01-20] MEDS: Carbidopa/Levodopa 25/100 TABLET PO SCH ×3 (08:20→19:38)
[2019-01-20] MEDS: rOPINIRole 1 MG TABLET PO SCH ×3 (08:20→19:38)
[2019-01-20] MEDS: Lactobacillus 1 EACH CAP.SPRINK PO SCH ×2 (08:21→19:39)
[2019-01-20] MEDS: Finasteride 5 MG TABLET PO SCH (08:21)
[2019-01-20] MEDS: Nitrofurantoin (BID) 100 MG CAPSULE PO SCH ×2 (08:21→19:39)
[2019-01-20] MEDS: Spironolactone 25 MG TABLET PO SCH (08:21)
[2019-01-20] MEDS: Fluticasone Propionate Nasal 50 MCG/SPRAY BOTTLE NS SCH (08:21)
[2019-01-20] MEDS: levoFLOXacin 500 MG TABLET PO SCH (08:21)
[2019-01-20] MEDS: (Ipratropium/Albuterol Sulfate [Combivent Respimat 20 IH SCH ×4 (09:10→19:39)
[2019-01-20 09:20] LABS: % Iron Saturation 27 % (20-55); Iron 74 mcg/dL (65-175); Transferrin 198 mg/dL (203-362)
[2019-01-20 09:38] LABS: Ferritin 79 ng/mL (20-250)
[2019-01-20 09:43] LABS: Folate 13.4 ng/mL (3.0-16.0)
--- NOTE | 2019-01-20 12:36 | Internal Med Progress Note ---
Date of Encounter: 01/20/19 Time of Encounter: 12:30 - Assessment and plan (1) Pneumonia Current Visit: No Status: Acute Assessment and plan: January 20. Discontinue Levaquin. Qualifiers: Pneumonia type: due to unspecified organism Laterality: bilateral Lung location: unspecified part of lung Qualified Code(s): J18.9 - Pneumonia, unspecified organism (2) UTI (urinary tract infection) due to Enterococcus Current Visit: No Status: Acute Assessment and plan: January 20. Continue Macrobid with lactobacillus through 01/28/2019. (3) Enlarged prostate Current Visit: No Status: Chronic Assessment and plan: January 28. Continue Flomax and Proscar (4) General weakness Current Visit: No Status: Chronic Assessment and plan: January 28. Continue PT and OT intervention. (5) HTN (hypertension) Current Visit: No Status: Chronic Assessment and plan: January 28. Continue Aldactone and monitor labs. Qualifiers: Hypertension type: essential hypertension Qualified Code(s): I10 - Essential (primary) hypertension (6) Anemia Current Visit: No Status: Acute Assessment and plan: January 28. Hemoglobin stable at 12.9. Anemia testing shows iron 74, transferrin saturation 27%, transferrin 198, ferritin 79, B12 443, and folate 13.4. Qualifiers: Anemia type: unspecified type Qualified Code(s): D64.9 - Anemia, unspecified - Subjective Interval history: January 20. He has no new complaints. - Constitutional Vitals: Temp Pulse Resp BP Pulse Ox 97.8 F 70 20 137/75 97 01/20/19 07:39 01/20/19 07:39 01/20/19 07:39 01/20/19 07:39 01/20/19 07:39 Exam: He is resting comfortably in bed and appears in no acute distress. His affect is overall cheerful. I reviewed his medications and lab results. Internal Medicine: Result - Labs CBC & Chem 7: 01/20/19 05:01 Labs: Short CBC 01/20/19 Range/Units 05:01 WBC 8.1 (4.3-11.1) K/mcL Hgb 12.9 (12.9-16.9) g/dL Hct 39.6 (37.5-50.1) % Plt Count 255 (140-400) K/mcL Neutrophils # 6.0 (1.6-8.9) K/mcL - ABG Interpretation ABG results: PT/INR, D-dimer PT 13.0 Seconds (9.4-12.1) H 01/19/19 04:50 Consult Discharge Plan - Plan Referrals: Kei Duque MD [Primary Care Provider] - 1 week
[2019-01-20] MEDS ORDERED: ALPRAZolam 0.5 MG TABLET PO ONE (19:03)
[2019-01-20] MEDS: Mirtazapine 15 MG TABLET PO SCH (19:39)
[2019-01-21] MEDS: Carbidopa/Levodopa 25/100 TABLET PO SCH ×3 (07:32→19:51)
[2019-01-21] MEDS: Spironolactone 25 MG TABLET PO SCH (07:32)
[2019-01-21] MEDS: levoFLOXacin 500 MG TABLET PO SCH (07:32)
[2019-01-21] MEDS: rOPINIRole 1 MG TABLET PO SCH ×3 (07:32→19:51)
[2019-01-21] MEDS: Lactobacillus 1 EACH CAP.SPRINK PO SCH ×2 (07:32→19:52)
[2019-01-21] MEDS: Fluticasone Propionate Nasal 50 MCG/SPRAY BOTTLE NS SCH (07:32)
[2019-01-21] MEDS: (Ipratropium/Albuterol Sulfate [Combivent Respimat 20 IH SCH ×4 (07:32→19:52)
[2019-01-21] MEDS: Finasteride 5 MG TABLET PO SCH (07:32)
[2019-01-21] MEDS: Nitrofurantoin (BID) 100 MG CAPSULE PO SCH ×2 (07:32→19:51)
--- NOTE | 2019-01-21 15:16 | Internal Med Progress Note ---
Date of Encounter: 01/21/19 Time of Encounter: 15:07 - Assessment and plan (1) Pneumonia Current Visit: No Status: Acute Assessment and plan: January 20. Discontinue Levaquin. Qualifiers: Pneumonia type: due to unspecified organism Laterality: bilateral Lung location: unspecified part of lung Qualified Code(s): J18.9 - Pneumonia, unspecified organism (2) UTI (urinary tract infection) due to Enterococcus Current Visit: No Status: Acute Assessment and plan: January 20. Continue Macrobid with lactobacillus through 01/28/2019. (3) Enlarged prostate Current Visit: No Status: Chronic Assessment and plan: January 28. Continue Flomax and Proscar (4) General weakness Current Visit: No Status: Chronic Assessment and plan: January 28. Continue PT and OT intervention. (5) HTN (hypertension) Current Visit: No Status: Chronic Assessment and plan: January 28. Continue Aldactone and monitor labs. Qualifiers: Hypertension type: essential hypertension Qualified Code(s): I10 - Essential (primary) hypertension (6) Anemia Current Visit: No Status: Acute Assessment and plan: January 28. Hemoglobin stable at 12.9. Anemia testing shows iron 74, transferrin saturation 27%, transferrin 198, ferritin 79, B12 443, and folate 13.4. Qualifiers: Anemia type: unspecified type Qualified Code(s): D64.9 - Anemia, unspecified - Subjective Interval history: January 20. He has no new complaints. January 21. He was agitated yesterday made threatening comments toward healthcare professionals in [place]. He has lessened agitation and has no specific complaints today. - Constitutional Vitals: Temp Pulse Resp BP Pulse Ox 97.3 F L 77 26 133/74 97 01/21/19 06:29 01/21/19 06:29 01/21/19 06:29 01/21/19 06:29 01/21/19 06:29 Exam: Is resting comfortably in bed and appears in no acute distress. His speech is difficult to understand. His affect is flat. He is not agitated. MMSE shows scored 27/30. I reviewed his medications and lab results. Internal Medicine: Result - Labs CBC & Chem 7: 01/20/19 05:01 - ABG Interpretation ABG results: PT/INR, D-dimer PT 13.0 Seconds (9.4-12.1) H 01/19/19 04:50 Consult Discharge Plan - Plan Referrals: Kei Duque MD [Primary Care Provider] - 1 week
[2019-01-21] MEDS: ALPRAZolam 0.5 MG TABLET PO PRN (16:38)
[2019-01-21] MEDS: Mirtazapine 15 MG TABLET PO SCH (19:51)
[2019-01-22] MEDS: (Ipratropium/Albuterol Sulfate [Combivent Respimat 20 IH SCH ×4 (08:47→20:17)
[2019-01-22] MEDS: Finasteride 5 MG TABLET PO SCH (09:22)
[2019-01-22] MEDS: Spironolactone 25 MG TABLET PO SCH (09:23)
[2019-01-22] MEDS: rOPINIRole 1 MG TABLET PO SCH ×3 (09:23→20:17)
[2019-01-22] MEDS: Fluticasone Propionate Nasal 50 MCG/SPRAY BOTTLE NS SCH (09:23)
[2019-01-22] MEDS: Carbidopa/Levodopa 25/100 TABLET PO SCH ×3 (09:23→20:17)
[2019-01-22] MEDS: levoFLOXacin 500 MG TABLET PO SCH (09:23)
[2019-01-22] MEDS: Lactobacillus 1 EACH CAP.SPRINK PO SCH ×2 (09:23→20:16)
[2019-01-22] MEDS: Nitrofurantoin (BID) 100 MG CAPSULE PO SCH ×2 (09:25→20:16)
--- NOTE | 2019-01-22 14:19 | Internal Med Progress Note ---
Date of Encounter: 01/22/19 Time of Encounter: 14:00 - Assessment and plan (1) Pneumonia Current Visit: No Status: Acute Assessment and plan: January 20. Discontinue Levaquin. Qualifiers: Pneumonia type: due to unspecified organism Laterality: bilateral Lung location: unspecified part of lung Qualified Code(s): J18.9 - Pneumonia, unspecified organism (2) UTI (urinary tract infection) due to Enterococcus Current Visit: No Status: Acute Assessment and plan: January 20. Continue Macrobid with lactobacillus through 01/28/2019. (3) Enlarged prostate Current Visit: No Status: Chronic Assessment and plan: January 21. Continue Flomax and Proscar (4) General weakness Current Visit: No Status: Chronic Assessment and plan: January 21. Continue PT and OT intervention. (5) HTN (hypertension) Current Visit: No Status: Chronic Assessment and plan: January 21. Continue Aldactone and monitor labs. Qualifiers: Hypertension type: essential hypertension Qualified Code(s): I10 - Essential (primary) hypertension (6) Anemia Current Visit: No Status: Acute Assessment and plan: January 21. Hemoglobin stable at 12.9. Anemia testing shows iron 74, transferrin saturation 27%, transferrin 198, ferritin 79, B12 443, and folate 13.4. Qualifiers: Anemia type: unspecified type Qualified Code(s): D64.9 - Anemia, unspecified - Subjective Interval history: January 20. He has no new complaints. January 21. He was agitated yesterday made threatening comments toward healthcare professionals in [place]. He has lessened agitation and has no specific complaints today. January 22. He has no new complaints. - Constitutional Vitals: Temp Pulse Resp BP Pulse Ox 98.3 F 75 28 127/69 96 01/22/19 06:37 01/22/19 06:37 01/22/19 06:37 01/22/19 06:37 01/22/19 06:37 Exam: He is resting comfortably in bed and appears in no acute distress. His affect is bright and cheerful. He does not seem agitated at all now. I reviewed his medications and lab results. Internal Medicine: Result - Labs CBC & Chem 7: 01/20/19 05:01 - ABG Interpretation ABG results: PT/INR, D-dimer PT 13.0 Seconds (9.4-12.1) H 04/30/19 04:50 Consult Discharge Plan - Plan Referrals: Kei Duque MD [Primary Care Provider] - 1 week
[2019-01-22] MEDS: ALPRAZolam 0.5 MG TABLET PO PRN (16:36)
[2019-01-22] MEDS: Mirtazapine 15 MG TABLET PO SCH (20:17)
[2019-01-23] MEDS: Fluticasone Propionate Nasal 50 MCG/SPRAY BOTTLE NS SCH (08:14)
[2019-01-23] MEDS: rOPINIRole 1 MG TABLET PO SCH ×3 (08:15→19:54)
[2019-01-23] MEDS: Lactobacillus 1 EACH CAP.SPRINK PO SCH ×2 (08:15→19:54)
[2019-01-23] MEDS: ALPRAZolam 0.5 MG TABLET PO PRN ×2 (08:15→19:54)
[2019-01-23] MEDS: Carbidopa/Levodopa 25/100 TABLET PO SCH ×3 (08:15→19:54)
[2019-01-23] MEDS: Nitrofurantoin (BID) 100 MG CAPSULE PO SCH ×2 (08:15→19:54)
[2019-01-23] MEDS: Finasteride 5 MG TABLET PO SCH (08:15)
[2019-01-23] MEDS: levoFLOXacin 500 MG TABLET PO SCH (08:15)
[2019-01-23] MEDS: Spironolactone 25 MG TABLET PO SCH (08:15)
[2019-01-23] MEDS: (Ipratropium/Albuterol Sulfate [Combivent Respimat 20 IH SCH ×4 (08:16→19:54)
[2019-01-23] MEDS: Mirtazapine 15 MG TABLET PO SCH (19:54)
[2019-01-24] MEDS: Fluticasone Propionate Nasal 50 MCG/SPRAY BOTTLE NS SCH (08:10)
[2019-01-24] MEDS: Carbidopa/Levodopa 25/100 TABLET PO SCH ×3 (08:11→20:32)
[2019-01-24] MEDS: Finasteride 5 MG TABLET PO SCH (08:11)
[2019-01-24] MEDS: ALPRAZolam 0.5 MG TABLET PO PRN (08:11)
[2019-01-24] MEDS: Nitrofurantoin (BID) 100 MG CAPSULE PO SCH ×2 (08:11→20:32)
[2019-01-24] MEDS: rOPINIRole 1 MG TABLET PO SCH ×3 (08:11→20:33)
[2019-01-24] MEDS: Spironolactone 25 MG TABLET PO SCH (08:12)
[2019-01-24] MEDS: levoFLOXacin 500 MG TABLET PO SCH (08:12)
[2019-01-24] MEDS: (Ipratropium/Albuterol Sulfate [Combivent Respimat 20 IH SCH ×4 (08:12→20:33)
[2019-01-24] MEDS: Lactobacillus 1 EACH CAP.SPRINK PO SCH ×2 (08:12→20:32)
--- NOTE | 2019-01-24 12:46 | Internal Med Progress Note ---
Date of Encounter: 01/24/19 Time of Encounter: 12:40 - Assessment and plan (1) Pneumonia Current Visit: No Status: Acute Assessment and plan: January 20. Discontinue Levaquin. Qualifiers: Pneumonia type: due to unspecified organism Laterality: bilateral Lung location: unspecified part of lung Qualified Code(s): J18.9 - Pneumonia, unspecified organism (2) UTI (urinary tract infection) due to Enterococcus Current Visit: No Status: Acute Assessment and plan: January 20. Continue Macrobid with lactobacillus through 01/28/2019. (3) Enlarged prostate Current Visit: No Status: Chronic Assessment and plan: January 21. Continue Flomax and Proscar (4) General weakness Current Visit: No Status: Chronic Assessment and plan: January 21. Continue PT and OT intervention. (5) HTN (hypertension) Current Visit: No Status: Chronic Assessment and plan: January 21. Continue Aldactone and monitor labs. Qualifiers: Hypertension type: essential hypertension Qualified Code(s): I10 - Essential (primary) hypertension (6) Anemia Current Visit: No Status: Acute Assessment and plan: January 21. Hemoglobin stable at 12.9. Anemia testing shows iron 74, transferrin saturation 27%, transferrin 198, ferritin 79, B12 443, and folate 13.4. Qualifiers: Anemia type: unspecified type Qualified Code(s): D64.9 - Anemia, unspecified - Subjective Interval history: January 20. He has no new complaints. January 2. He was agitated yesterday made threatening comments toward healthcare professionals in [place]. He has lessened agitation and has no specific complaints today. January 22. He has no new complaints. January 24. He has no new complaints. - Constitutional Vitals: Temp Pulse Resp BP Pulse Ox 98.4 F 61 22 152/78 98 01/24/19 07:39 01/24/19 07:39 01/24/19 07:39 01/24/19 07:39 01/24/19 07:39 Exam: He is resting comfortably in bed and appears in no acute distress. His affect is bright and cheerful. Heart is regular without murmurs gallops or ectopics. Lungs are clear. Extremities show no edema. I reviewed his medications and lab results. Internal Medicine: Result - Labs CBC & Chem 7: 01/20/19 05:01 - ABG Interpretation ABG results: PT/INR, D-dimer PT 13.0 Seconds (9.4-12.1) H 01/19/19 04:50 Consult Discharge Plan - Plan Referrals: Kei Duque MD [Primary Care Provider] - 1 week
[2019-01-24] MEDS: Mirtazapine 15 MG TABLET PO SCH (20:32)
[2019-01-25] MEDS: Lactobacillus 1 EACH CAP.SPRINK PO SCH ×2 (08:11→20:07)
[2019-01-25] MEDS: Finasteride 5 MG TABLET PO SCH (08:11)
[2019-01-25] MEDS: rOPINIRole 1 MG TABLET PO SCH ×3 (08:11→20:07)
[2019-01-25] MEDS: Spironolactone 25 MG TABLET PO SCH (08:11)
[2019-01-25] MEDS: Nitrofurantoin (BID) 100 MG CAPSULE PO SCH ×2 (08:11→20:07)
[2019-01-25] MEDS: Fluticasone Propionate Nasal 50 MCG/SPRAY BOTTLE NS SCH (08:11)
[2019-01-25] MEDS: (Ipratropium/Albuterol Sulfate [Combivent Respimat 20 IH SCH ×4 (08:12→20:07)
[2019-01-25] MEDS: levoFLOXacin 500 MG TABLET PO SCH (08:12)
[2019-01-25] MEDS: Carbidopa/Levodopa 25/100 TABLET PO SCH ×3 (08:12→20:07)
[2019-01-25] MEDS: Mirtazapine 15 MG TABLET PO SCH (20:07)
[2019-01-26] MEDS: Nitrofurantoin (BID) 100 MG CAPSULE PO SCH ×2 (09:52→19:34)
[2019-01-26] MEDS: Carbidopa/Levodopa 25/100 TABLET PO SCH ×3 (09:52→19:34)
[2019-01-26] MEDS: rOPINIRole 1 MG TABLET PO SCH ×3 (09:52→19:34)
[2019-01-26] MEDS: Spironolactone 25 MG TABLET PO SCH (09:52)
[2019-01-26] MEDS: Finasteride 5 MG TABLET PO SCH (09:52)
[2019-01-26] MEDS: Lactobacillus 1 EACH CAP.SPRINK PO SCH ×2 (09:52→19:34)
[2019-01-26] MEDS: Fluticasone Propionate Nasal 50 MCG/SPRAY BOTTLE NS SCH (09:53)
[2019-01-26] MEDS: (Ipratropium/Albuterol Sulfate [Combivent Respimat 20 IH SCH ×4 (09:53→20:17)
--- NOTE | 2019-01-26 16:23 | Internal Med Progress Note ---
Date of Encounter: 01/26/19 Time of Encounter: 16:15 - Assessment and plan (1) Pneumonia Current Visit: No Status: Acute Assessment and plan: January 20. Discontinue Levaquin. Qualifiers: Pneumonia type: due to unspecified organism Laterality: bilateral Lung location: unspecified part of lung Qualified Code(s): J18.9 - Pneumonia, unspecified organism (2) UTI (urinary tract infection) due to Enterococcus Current Visit: No Status: Acute Assessment and plan: January 20. Continue Macrobid with lactobacillus through 01/28/2019. (3) Enlarged prostate Current Visit: No Status: Chronic Assessment and plan: January 21. Continue Flomax and Proscar (4) General weakness Current Visit: No Status: Chronic Assessment and plan: January 21. Continue PT and OT intervention. (5) HTN (hypertension) Current Visit: No Status: Chronic Assessment and plan: January 21. Continue Aldactone and monitor labs. Qualifiers: Hypertension type: essential hypertension Qualified Code(s): I10 - Essential (primary) hypertension (6) Anemia Current Visit: No Status: Acute Assessment and plan: January 21. Hemoglobin stable at 12.9. Anemia testing shows iron 74, transferrin saturation 27%, transferrin 198, ferritin 79, B12 443, and folate 13.4. Qualifiers: Anemia type: unspecified type Qualified Code(s): D64.9 - Anemia, unspecified - Subjective Interval history: January 20. He has no new complaints. January 2. He was agitated yesterday made threatening comments toward healthcare professionals in [place]. He has lessened agitation and has no specific complaints today. January 22. He has no new complaints. January 24. He has no new complaints. January 26. He has no new complaints. - Constitutional Vitals: Temp Pulse Resp BP Pulse Ox 97.9 F 66 20 128/62 97 01/26/19 06:45 01/26/19 06:45 01/26/19 06:45 01/26/19 06:45 01/26/19 06:45 Exam: He is resting comfortably in bed and appears in no acute distress. His affect is bright and cheerful. I reviewed his medications and lab results. Internal Medicine: Result - Labs CBC & Chem 7: 01/20/19 05:01 - ABG Interpretation ABG results: PT/INR, D-dimer PT 13.0 Seconds (9.4-12.1) H 01/19/19 04:50 Consult Discharge Plan - Plan Referrals: Kei Duque MD [Primary Care Provider] - 1 week
[2019-01-26] MEDS: Mirtazapine 15 MG TABLET PO SCH (19:34)
[2019-01-27] MEDS: Lactobacillus 1 EACH CAP.SPRINK PO SCH ×2 (08:06→21:04)
[2019-01-27] MEDS: Carbidopa/Levodopa 25/100 TABLET PO SCH ×3 (08:06→21:05)
[2019-01-27] MEDS: Finasteride 5 MG TABLET PO SCH (08:06)
[2019-01-27] MEDS: Spironolactone 25 MG TABLET PO SCH (08:06)
[2019-01-27] MEDS: (Ipratropium/Albuterol Sulfate [Combivent Respimat 20 IH SCH ×4 (08:07→21:04)
[2019-01-27] MEDS: Fluticasone Propionate Nasal 50 MCG/SPRAY BOTTLE NS SCH (08:07)
[2019-01-27] MEDS: rOPINIRole 1 MG TABLET PO SCH ×3 (08:07→21:04)
[2019-01-27] MEDS: Nitrofurantoin (BID) 100 MG CAPSULE PO SCH ×2 (11:56→21:04)
[2019-01-27] MEDS: Mirtazapine 15 MG TABLET PO SCH (21:05)
[2019-01-28] MEDS: rOPINIRole 1 MG TABLET PO SCH ×3 (07:33→20:23)
[2019-01-28] MEDS: Nitrofurantoin (BID) 100 MG CAPSULE PO SCH (07:33)
[2019-01-28] MEDS: Finasteride 5 MG TABLET PO SCH (07:34)
[2019-01-28] MEDS: Fluticasone Propionate Nasal 50 MCG/SPRAY BOTTLE NS SCH (07:34)
[2019-01-28] MEDS: Spironolactone 25 MG TABLET PO SCH (07:34)
[2019-01-28] MEDS: Carbidopa/Levodopa 25/100 TABLET PO SCH ×3 (07:34→20:23)
[2019-01-28] MEDS: Lactobacillus 1 EACH CAP.SPRINK PO SCH (07:34)
[2019-01-28] MEDS: (Ipratropium/Albuterol Sulfate [Combivent Respimat 20 IH SCH ×4 (07:57→20:24)
--- NOTE | 2019-01-28 10:53 | Internal Med Progress Note ---
Date of Encounter: 01/28/19 Time of Encounter: 10:45 - Assessment and plan (1) Pneumonia Current Visit: No Status: Acute Assessment and plan: January 20. Discontinue Levaquin. Qualifiers: Pneumonia type: due to unspecified organism Laterality: bilateral Lung location: unspecified part of lung Qualified Code(s): J18.9 - Pneumonia, unspecified organism (2) UTI (urinary tract infection) due to Enterococcus Current Visit: No Status: Acute Assessment and plan: January 20. Continue Macrobid with lactobacillus through 01/28/2019. January 28. Discontinue Macrobid and lactobacillus. (3) Enlarged prostate Current Visit: No Status: Chronic Assessment and plan: January 21. Continue Flomax and Proscar (4) General weakness Current Visit: No Status: Chronic Assessment and plan: January 21. Continue PT and OT intervention. (5) HTN (hypertension) Current Visit: No Status: Chronic Assessment and plan: January 21. Continue Aldactone and monitor labs. January 28. Recheck labs in a.m. Qualifiers: Hypertension type: essential hypertension Qualified Code(s): I10 - Essential (primary) hypertension (6) Anemia Current Visit: No Status: Acute Assessment and plan: January 21. Hemoglobin stable at 12.9. Anemia testing shows iron 74, transferrin saturation 27%, transferrin 198, ferritin 79, B12 443, and folate 13.4. Qualifiers: Anemia type: unspecified type Qualified Code(s): D64.9 - Anemia, unspecified - Subjective Interval history: January 20. He has no new complaints. January 2. He was agitated yesterday made threatening comments toward healthcare professionals in [place]. He has lessened agitation and has no specific complaints today. January 22. He has no new complaints. January 24. He has no new complaints. January 26. He has no new complaints. January 28. He has no new complaints. He states he wants to go home. I explained again it would be best to wait until his family arrives from out of state next week. - Constitutional Vitals: Temp Pulse Resp BP Pulse Ox 98.0 F 60 30 125/71 93 01/28/19 06:32 01/28/19 06:32 01/28/19 06:32 01/28/19 06:32 01/28/19 06:32 Exam: He is resting comfortably in bed and appears in no acute distress. His affect is bright and cheerful. I reviewed his medications and lab results. Internal Medicine: Result - Labs CBC & Chem 7: 01/20/19 05:01 - ABG Interpretation ABG results: PT/INR, D-dimer PT 13.0 Seconds (9.4-12.1) H 01/19/19 04:50 Consult Discharge Plan - Plan Referrals: Kei Duque MD [Primary Care Provider] - 1 week
[2019-01-28] MEDS: Mirtazapine 15 MG TABLET PO SCH (20:23)
[2019-01-29 06:38] LABS: Basophils % 0.5 %; Eosinophils # 0.1 K/mcL (0.0-0.6); Eosinophils % 2.1 %; Hematocrit 36.2 % (37.5-50.1); Immature Granulocytes % 0.2 % (0-4); Lymphocytes # 1.5 K/mcL (0.6-4.6); Lymphocytes % 25.5 %; Mean Corpuscular HGB Conc 33.1 g/dL (31.6-35.5); Mean Corpuscular Hemoglobin 29.8 pg (28.0-33.3); Mean Corpuscular Volume 89.8 fL (83.0-100.0); Monocytes # 0.5 K/mcL (0.0-1.3); Neutrophils # 3.7 K/mcL (1.6-8.9); Platelet Count 228 K/mcL (140-400); Red Blood Count 4.03 M/mcL (4.19-5.50); Red Cell Distribution Width 13.2 % (11.5-14.5); Segmented Neutrophils % 63.7 %
[2019-01-29 06:51] LABS: BUN/Creatinine Ratio 14 (6-26); Blood Urea Nitrogen 12 mg/dL (8-23); Calcium 8.7 mg/dL (8.6-10.3); Carbon Dioxide 31 mEq/L (23-29); Chloride 100 mEq/L (98-107); Glucose 93 mg/dL (70-105); Magnesium 1.8 mg/dL (1.6-2.6); Osmolality,Calculated 279 (280-300); Potassium 3.7 mEq/L (3.5-5.1); Sodium 135 mEq/L (136-145); eGFR For Non-African Americans > 60 (> 60)
[2019-01-29] MEDS: Finasteride 5 MG TABLET PO SCH (07:56)
[2019-01-29] MEDS: Carbidopa/Levodopa 25/100 TABLET PO SCH ×3 (07:56→20:28)
[2019-01-29] MEDS: Spironolactone 25 MG TABLET PO SCH (07:56)
[2019-01-29] MEDS: rOPINIRole 1 MG TABLET PO SCH ×3 (07:56→20:28)
[2019-01-29] MEDS: Fluticasone Propionate Nasal 50 MCG/SPRAY BOTTLE NS SCH (07:57)
[2019-01-29] MEDS: (Ipratropium/Albuterol Sulfate [Combivent Respimat 20 IH SCH ×4 (08:03→23:29)
[2019-01-29] MEDS: Mirtazapine 15 MG TABLET PO SCH (20:28)
[2019-01-30] MEDS: Carbidopa/Levodopa 25/100 TABLET PO SCH ×3 (08:29→20:38)
[2019-01-30] MEDS: Spironolactone 25 MG TABLET PO SCH (08:29)
[2019-01-30] MEDS: rOPINIRole 1 MG TABLET PO SCH ×3 (08:29→20:39)
[2019-01-30] MEDS: Finasteride 5 MG TABLET PO SCH (08:29)
[2019-01-30] MEDS: (Ipratropium/Albuterol Sulfate [Combivent Respimat 20 IH SCH ×4 (08:29→20:44)
[2019-01-30] MEDS: Fluticasone Propionate Nasal 50 MCG/SPRAY BOTTLE NS SCH (08:29)
[2019-01-30] MEDS: Mirtazapine 15 MG TABLET PO SCH (20:39)
[2019-01-31] MEDS: rOPINIRole 1 MG TABLET PO SCH ×3 (07:48→20:39)
[2019-01-31] MEDS: Carbidopa/Levodopa 25/100 TABLET PO SCH ×3 (07:49→20:40)
[2019-01-31] MEDS: Finasteride 5 MG TABLET PO SCH (07:49)
[2019-01-31] MEDS: Spironolactone 25 MG TABLET PO SCH (07:49)
[2019-01-31] MEDS: (Ipratropium/Albuterol Sulfate [Combivent Respimat 20 IH SCH ×4 (07:49→20:40)
[2019-01-31] MEDS: Fluticasone Propionate Nasal 50 MCG/SPRAY BOTTLE NS SCH (14:00)
[2019-01-31] MEDS: Mirtazapine 15 MG TABLET PO SCH (20:40)
[2019-02-01] MEDS: Spironolactone 25 MG TABLET PO SCH (08:45)
[2019-02-01] MEDS: Fluticasone Propionate Nasal 50 MCG/SPRAY BOTTLE NS SCH (08:45)
[2019-02-01] MEDS: Carbidopa/Levodopa 25/100 TABLET PO SCH ×3 (08:45→20:22)
[2019-02-01] MEDS: Finasteride 5 MG TABLET PO SCH (08:45)
[2019-02-01] MEDS: rOPINIRole 1 MG TABLET PO SCH ×3 (08:45→20:22)
[2019-02-01] MEDS: (Ipratropium/Albuterol Sulfate [Combivent Respimat 20 IH SCH ×4 (08:46→20:23)
--- NOTE | 2019-02-01 19:27 | Internal Med Progress Note ---
Date of Encounter: 02/01/19 Time of Encounter: 19:20 - Assessment and plan (1) Pneumonia Current Visit: No Status: Acute Assessment and plan: January 20. Discontinue Levaquin. Qualifiers: Pneumonia type: due to unspecified organism Laterality: bilateral Lung location: unspecified part of lung Qualified Code(s): J18.9 - Pneumonia, unspecified organism (2) UTI (urinary tract infection) due to Enterococcus Current Visit: No Status: Acute Assessment and plan: January 20. Continue Macrobid with lactobacillus through 01/28/2019. January 28. Discontinue Macrobid and lactobacillus. (3) Enlarged prostate Current Visit: No Status: Chronic Assessment and plan: January 21. Continue Flomax and Proscar (4) General weakness Current Visit: No Status: Chronic Assessment and plan: January 21. Continue PT and OT intervention. (5) HTN (hypertension) Current Visit: No Status: Chronic Assessment and plan: January 21. Continue Aldactone and monitor labs. January 28. Recheck labs in a.m. February 01. Labs generally unremarkable. Continue present Rx. Qualifiers: Hypertension type: essential hypertension Qualified Code(s): I10 - Essential (primary) hypertension (6) Anemia Current Visit: No Status: Acute Assessment and plan: January 21. Hemoglobin stable at 12.9. Anemia testing shows iron 74, transferrin saturation 27%, transferrin 198, ferritin 79, B12 443, and folate 13.4. Qualifiers: Anemia type: unspecified type Qualified Code(s): D64.9 - Anemia, unspec ified - Subjective Interval history: January 20. He has no new complaints. January 2. He was agitated yesterday made threatening comments toward healthcare professionals in [place]. He has lessened agitation and has no specific complaints today. January 22. He has no new complaints. January 24. He has no new complaints. January 26. He has no new complaints. January 28. He has no new complaints. He states he wants to go home. I explained again it would be best to wait until his family arrives from out of state next week. February 01. He has no new complaints. - Constitutional Vitals: Temp Pulse Resp BP Pulse Ox 98.4 F 78 16 103/55 97 02/01/19 18:41 02/01/19 18:41 02/01/19 18:41 02/01/19 18:41 02/01/19 18:41 Exam: He is resting comfortably in bed and appears in no acute distress. His affect is bright and cheerful. I reviewed his medications and lab results. Internal Medicine: Result - Labs CBC & Chem 7: 01/29/19 05:36 01/29/19 05:36 - ABG Interpretation ABG results: PT/INR, D-dimer PT 13.0 Seconds (9.4-12.1) H 01/19/19 04:50 Consult Discharge Plan - Plan Referrals: Kei Duque MD [Primary Care Provider] - 1 week
[2019-02-01] MEDS: Mirtazapine 15 MG TABLET PO SCH (20:23)
[2019-02-02] MEDS: (Ipratropium/Albuterol Sulfate [Combivent Respimat 20 IH SCH ×4 (08:14→21:41)
[2019-02-02] MEDS: rOPINIRole 1 MG TABLET PO SCH ×3 (08:15→21:43)
[2019-02-02] MEDS: Finasteride 5 MG TABLET PO SCH (08:15)
[2019-02-02] MEDS: Carbidopa/Levodopa 25/100 TABLET PO SCH ×3 (08:15→21:43)
[2019-02-02] MEDS: Spironolactone 25 MG TABLET PO SCH (08:15)
[2019-02-02] MEDS: Fluticasone Propionate Nasal 50 MCG/SPRAY BOTTLE NS SCH (08:22)
[2019-02-02] MEDS: Mirtazapine 15 MG TABLET PO SCH (21:43)
[2019-02-03] MEDS: Carbidopa/Levodopa 25/100 TABLET PO SCH ×3 (07:56→20:24)
[2019-02-03] MEDS: Finasteride 5 MG TABLET PO SCH (07:57)
[2019-02-03] MEDS: Spironolactone 25 MG TABLET PO SCH (07:57)
[2019-02-03] MEDS: rOPINIRole 1 MG TABLET PO SCH ×3 (07:57→20:24)
[2019-02-03] MEDS: (Ipratropium/Albuterol Sulfate [Combivent Respimat 20 IH SCH ×4 (07:57→20:22)
[2019-02-03] MEDS: Fluticasone Propionate Nasal 50 MCG/SPRAY BOTTLE NS SCH (08:02)
[2019-02-03] MEDS: Mirtazapine 15 MG TABLET PO SCH (20:24)
[2019-02-04 06:46] VITALS: BP 115/60
--- NOTE | 2019-02-04 09:33 | Discharge Summary ---
Date of Encounter: 02/04/19 Time of Encounter: 09:24 - Discharge Diagnosis (1) Pneumonia Priority: Primary Status: Resolved Qualifiers: Pneumonia type: due to unspecified organism Laterality: bilateral Lung location: unspecified part of lung Qualified Code(s): J18.9 - Pneumonia, unspecified organism (2) UTI (urinary tract infection) due to Enterococcus Priority: Secondary Status: Resolved (3) Enlarged prostate Priority: Secondary Status: Chronic (4) General weakness Priority: Secondary Status: Chronic (5) HTN (hypertension) Priority: Secondary Status: Chronic Qualifiers: Hypertension type: essential hypertension Qualified Code(s): I10 - Essential (primary) hypertension (6) Anemia Priority: Secondary Status: Acute Qualifiers: Anemia type: unspecified type Qualified Code(s): D64.9 - Anemia, unspecified Hospital course: Mr. Toro is a 88 year old male who was transferred to [facility] swing bed following January 13 [facility] stay for pneumonia and UTI with hematuria. Urine culture showed Enterococcus faecalis. He was felt to have enlarged prostate and Proscar was added to Flomax. He was treated with IV vancomycin and Zosyn for pneumonia. He was discharged to swing bed on Levaquin and Macrobid. Initial orders were written by the discharging physicians at [facility]. I saw him on January 19 and performed a swing bed history and physical. He completed prescribed courses of Levaquin and Macrobid. He had no evidence of ongoing pneumonia or UTI following antibiotic discontinuation. He had physical therapy and occupational therapy evaluation with ongoing interventions. He made satisfactory progress. Home health services will be ordered at discharge. On February 04 he felt stable for discharge home. Family had arrived from out of state to assist in his care needs. He will follow with his PCP within 1 week. - Time Spent with Patient Total time spent providing and/or coordinating discharge services: - Discharge Medications Prescriptions: Continued Atorvastatin [Lipitor] 40 mg PO DAILY Carbidopa/Levodopa 25/100 [Sinemet 25/100] 2 tab PO TID Fluticasone Propionate Nasal [Flonase] 2 spr NS DAILY Montelukast [Singulair] 10 mg PO DAILY Pantoprazole Sodium [Protonix] 40 mg PO DAILY Ropinirole HCl [Requip] 2 mg PO TID Tamsulosin HCl [Flomax] 0.4 mg PO DAILY Mirtazapine 45 mg PO HS Spironolactone [Aldactone] 25 mg PO DAILY Nitroglycerin 0.4 mg SL Q5M PRN PRN Reason: Chest Pain Ipratropium/Albuterol Sulfate [Combivent Respimat 20-100 Mcg] 2 puff IH QID Discontinued Loratadine [Allergy Relief] 10 mg PO DAILY Metoprolol Succinate [Toprol Xl] 25 mg PO DAILY Losartan Potassium 25 mg PO DAILY Home Medications: Atorvastatin [Lipitor] 40 mg PO DAILY 05/22/18 [History] Carbidopa/Levodopa 25/100 [Sinemet 25/100] 2 tab PO TID 05/22/18 [History] Fluticasone Propionate Nasal [Flonase] 2 spr NS DAILY 05/22/18 [History] Montelukast [Singulair] 10 mg PO DAILY 05/22/18 [History] Pantoprazole Sodium [Protonix] 40 mg PO DAILY 05/22/18 [History] Ropinirole HCl [Requip] 2 mg PO TID 05/22/18 [History] Tamsulosin HCl [Flomax] 0.4 mg PO DAILY 05/22/18 [History] Ipratropium/Albuterol Sulfate [Combivent Respimat 20-100 Mcg] 2 puff IH QID 01/13/19 [History] Mirtazapine 45 mg PO HS 01/13/19 [History] Nitroglycerin 0.4 mg SL Q5M PRN 01/13/19 [History] Spironolactone [Aldactone] 25 mg PO DAILY 01/13/19 [History] Allergies/Adverse Reactions: Allergy/AdvReac Type Severity Reaction Status Date / Time No Known Allergies Allergy Verified 12/30/16 14:23 Date of admission: 01/18/19 19:57 Primary care physician: Kei Duque MD Consults: 01/18/19 16:40 Consult to [facility] [CONS] Routine Reason for SW Consult: DISCHARGE PLANNING 01/18/19 16:43 Consult to Physical Therapy [CONS] Routine Comment: Evaluate, develop and implement POC Reason for Consult: WEAKNESS Does patient have active BEDREST order?: No Is patient medically & hemodynamically stable?: Yes Patient assessed for mobility or mobilized this visit?: No OT [Consult to Occupational Therapy] [CONS] Routine Comment: Evaluate, develop and implement POC Reason for Consult: WEAKNESS Does patient have active BEDREST order?: No Is patient medically & hemodynamically stable?: Yes Patient assessed for mobility or mobilized this visit?: No 01/18/19 18:13 Consult to [facility] [CONS] Routine Reason for SW Consult: swing bed/rehab - Constitutional Vitals: Temp Pulse Resp BP Pulse Ox 98.3 F 57 15 115/60 95 02/04/19 06:44 02/04/19 06:44 02/04/19 06:44 02/04/19 06:44 02/04/19 06:44 - Patient Status Disposition: Home Health Service - Discharge Instructions Follow Up With: Kei Duque MD [Primary Care Provider] - 1 week - Diet and Activity Activity: as per physical therapy Diet: regular diet (With honey thick liquids)
[2019-02-04] MEDS: Fluticasone Propionate Nasal 50 MCG/SPRAY BOTTLE NS SCH (09:41)
[2019-02-04] MEDS: Finasteride 5 MG TABLET PO SCH (09:41)
[2019-02-04] MEDS: (Ipratropium/Albuterol Sulfate [Combivent Respimat 20 IH SCH (09:41)
[2019-02-04] MEDS: Carbidopa/Levodopa 25/100 TABLET PO SCH (09:41)
[2019-02-04] MEDS: rOPINIRole 1 MG TABLET PO SCH (09:41)
[2019-02-04] MEDS: Spironolactone 25 MG TABLET PO SCH (09:41)
--- NOTE | 2019-02-04 09:52 | Physician Discharge Referral ---
Home Health/Hosp Referral Info Transfer to: Home Health Attending Provider: Gavin Provider in Charge Post Discharge: PCP [place]) - Diagnosis (1) Pneumonia Priority: Primary Status: Resolved (2) UTI (urinary tract infection) due to Enterococcus Priority: Secondary Status: Resolved (3) Enlarged prostate Priority: Secondary Status: Chronic (4) General weakness Priority: Secondary Status: Chronic (5) HTN (hypertension) Priority: Secondary Status: Chronic (6) Anemia Priority: Secondary Status: Acute - Respiratory Orders Smoking Cessation: Smoking cessation has been advised. For more information, call the [place] Tobacco Quit Line at 1-321-HRKB-NOW. - Diet/Nutrition Diet/Nutrition Orders: Regular (With honey thick liquids) - Activity Activity Orders: Walker - Services Needed Following services are medically necessary services: Nursing, Home Health Aide, Physical Therapy, Occupational Therapy - Transfer Medications Home Medications: Atorvastatin [Lipitor] 40 mg PO DAILY 05/22/18 [History] Carbidopa/Levodopa 25/100 [Sinemet 25/100] 2 tab PO TID 05/22/18 [History] Fluticasone Propionate Nasal [Flonase] 2 spr NS DAILY 05/22/18 [History] Montelukast [Singulair] 10 mg PO DAILY 05/22/18 [History] Pantoprazole Sodium [Protonix] 40 mg PO DAILY 05/22/18 [History] Ropinirole HCl [Requip] 2 mg PO TID 05/22/18 [History] Tamsulosin HCl [Flomax] 0.4 mg PO DAILY 05/22/18 [History] Ipratropium/Albuterol Sulfate [Combivent Respimat 20-100 Mcg] 2 puff IH QID 01/13/19 [History] Mirtazapine 45 mg PO HS 01/13/19 [History] Nitroglycerin 0.4 mg SL Q5M PRN 01/13/19 [History] Spironolactone [Aldactone] 25 mg PO DAILY 01/13/19 [History] Allergies/Adverse Reactions: Allergy/AdvReac Type Severity Reaction Status Date / Time No Known Allergies Allergy Verified 12/30/16 14:23 Certification: Further, I certify that my clinical findings support that this patient is homebound (i.e. absences from home require considerable and taxing effort and are for medical reasons or anglican services or infrequently or short duration when for other reasons) because: Homebound Reason: Leaving home requires considerable and taxing effort due to condition (Parkinson's disease with impaired walking ability) Attestation: My signature below is to certify that this patient is under my care and that I, or nurse practitioner, or a physician's ex assistant/program director working with me, has a [id number] encounter with this patient.
== END 2019-02-04 14:33 | disposition home health service (06) | DRG 194 ==
LOC: INPPIK 19:57
PROVIDERS: ADMIT Internal Medicine; ATTEND Internal Medicine

== ENCOUNTER 2019-07-05 12:49 | Inpatient (IN) ==
[2019-07-05] MEDS ORDERED: Nitroglycerin 0.4 MG TAB.SUBL SL PRN (14:24)
[2019-07-05] MEDS ORDERED: Ipratropium/Albuterol Neb 3 ML IH PRN (16:00)
[2019-07-05] MEDS: rOPINIRole 1 MG TABLET PO SCH ×2 (16:20→21:02)
[2019-07-05] MEDS: Carbidopa/Levodopa 25/100 TABLET PO SCH ×2 (16:20→21:02)
[2019-07-05] MEDS: Mirtazapine 15 MG TABLET PO SCH (21:02)
[2019-07-06 06:13] LABS: Basophils % 0.5 %; Eosinophils # 0.2 K/mcL (0.0-0.6); Eosinophils % 2.8 %; Hematocrit 32.4 % (37.5-50.1); Hemoglobin 10.9 g/dL (12.9-16.9); Immature Granulocytes % 0.6 % (0-4); Lymphocytes # 1.1 K/mcL (0.6-4.6); Lymphocytes % 17.3 %; Mean Corpuscular HGB Conc 33.6 g/dL (31.6-35.5); Mean Corpuscular Hemoglobin 30.7 pg (28.0-33.3); Mean Corpuscular Volume 91.3 fL (83.0-100.0); Mean Platelet Volume 9.8 fL (9.4-12.4); Monocytes # 0.7 K/mcL (0.0-1.3); Monocytes % 10.7 %; Neutrophils # 4.4 K/mcL (1.6-8.9); Platelet Count 199 K/mcL (140-400); Red Blood Count 3.55 M/mcL (4.19-5.50); Red Cell Distribution Width 13.2 % (11.5-14.5); Segmented Neutrophils % 68.1 %; White Blood Count 6.5 K/mcL (4.3-11.1)
[2019-07-06 06:43] LABS: BUN/Creatinine Ratio 16 (6-26); Blood Urea Nitrogen 13 mg/dL (8-23); Calcium 8.1 mg/dL (8.6-10.3); Carbon Dioxide 28 mEq/L (23-29); Chloride 100 mEq/L (98-107); Glucose 101 mg/dL (70-105); Osmolality,Calculated 276 (280-300); Potassium 3.9 mEq/L (3.5-5.1); Sodium 133 mEq/L (136-145); eGFR For African Americans > 60 (> 60); eGFR For Non-African Americans > 60 (> 60)
[2019-07-06] MEDS: rOPINIRole 1 MG TABLET PO SCH ×3 (08:48→20:41)
[2019-07-06] MEDS: Carbidopa/Levodopa 25/100 TABLET PO SCH ×3 (08:48→20:42)
[2019-07-06] MEDS ORDERED: Spironolactone 25 MG TABLET PO SCH (09:00)
[2019-07-06 09:06] LABS: % Iron Saturation 17 % (20-55); Iron 39 mcg/dL (65-175); Transferrin 163 mg/dL (203-362)
[2019-07-06] MEDS: Fluticasone Propionate Nasal 50 MCG/SPRAY BOTTLE NS SCH (09:13)
[2019-07-06] MEDS: Aspirin Enteric Coated 325 MG Tablet PO SCH (09:14)
[2019-07-06 09:24] LABS: Ferritin 89 ng/mL (20-250)
[2019-07-06 09:29] LABS: Folate 10.6 ng/mL (3.0-16.0)
[2019-07-06] MEDS ORDERED: Cyanocobalamin (B-12) 1,000 MCG/ML VIAL IM ONE (14:24)
[2019-07-06] MEDS ORDERED: MOM Conc 10 ML UD.LIQ PO PRN (14:31)
[2019-07-06] MEDS: Finasteride 5 MG TABLET PO SCH (14:58)
[2019-07-06] MEDS: Mirtazapine 15 MG TABLET PO SCH (20:41)
[2019-07-06] MEDS: *HR* HYDROcodone/Acet 5/325 mg TABLET PO PRN (20:42)
[2019-07-07] MEDS: *HR* HYDROcodone/Acet 5/325 mg TABLET PO PRN ×2 (03:37→11:11)
[2019-07-07] MEDS: Ascorbic Acid 500 MG TABLET PO SCH (06:09)
[2019-07-07] MEDS: Carbidopa/Levodopa 25/100 TABLET PO SCH ×3 (09:05→20:16)
[2019-07-07] MEDS: Cyanocobalamin (B-12) 1,000 MCG TABLET PO SCH (09:05)
[2019-07-07] MEDS: Finasteride 5 MG TABLET PO SCH (09:05)
[2019-07-07] MEDS: rOPINIRole 1 MG TABLET PO SCH ×3 (09:06→20:16)
[2019-07-07] MEDS: Aspirin Enteric Coated 325 MG Tablet PO SCH (09:12)
[2019-07-07] MEDS: Fluticasone Propionate Nasal 50 MCG/SPRAY BOTTLE NS SCH (09:12)
[2019-07-07] MEDS: Mirtazapine 15 MG TABLET PO SCH (20:16)
[2019-07-08] MEDS: *HR* HYDROcodone/Acet 5/325 mg TABLET PO PRN ×3 (01:30→20:15)
[2019-07-08] MEDS: Ascorbic Acid 500 MG TABLET PO SCH (06:36)
[2019-07-08] MEDS: Carbidopa/Levodopa 25/100 TABLET PO SCH ×3 (07:46→20:15)
[2019-07-08] MEDS: rOPINIRole 1 MG TABLET PO SCH ×3 (07:46→20:15)
[2019-07-08] MEDS: Cyanocobalamin (B-12) 1,000 MCG TABLET PO SCH (07:46)
[2019-07-08] MEDS: Finasteride 5 MG TABLET PO SCH (07:46)
[2019-07-08] MEDS: Aspirin Enteric Coated 325 MG Tablet PO SCH (07:55)
[2019-07-08] MEDS: Fluticasone Propionate Nasal 50 MCG/SPRAY BOTTLE NS SCH (07:56)
[2019-07-08] MEDS: Mirtazapine 15 MG TABLET PO SCH (20:15)
[2019-07-09] MEDS: Ascorbic Acid 500 MG TABLET PO SCH (05:55)
[2019-07-09] MEDS: *HR* HYDROcodone/Acet 5/325 mg TABLET PO PRN ×3 (05:55→20:51)
[2019-07-09] MEDS: Fluticasone Propionate Nasal 50 MCG/SPRAY BOTTLE NS SCH (08:55)
[2019-07-09] MEDS: Aspirin Enteric Coated 325 MG Tablet PO SCH (08:56)
[2019-07-09] MEDS: Cyanocobalamin (B-12) 1,000 MCG TABLET PO SCH (08:56)
[2019-07-09] MEDS: rOPINIRole 1 MG TABLET PO SCH ×3 (08:56→20:45)
[2019-07-09] MEDS: Carbidopa/Levodopa 25/100 TABLET PO SCH ×3 (08:56→20:45)
[2019-07-09] MEDS: Finasteride 5 MG TABLET PO SCH (08:56)
[2019-07-09] MEDS: Mirtazapine 15 MG TABLET PO SCH (20:45)
[2019-07-10] MEDS: Ascorbic Acid 500 MG TABLET PO SCH (06:27)
[2019-07-10] MEDS: Fluticasone Propionate Nasal 50 MCG/SPRAY BOTTLE NS SCH (08:35)
[2019-07-10] MEDS: Finasteride 5 MG TABLET PO SCH (08:36)
[2019-07-10] MEDS: *HR* HYDROcodone/Acet 5/325 mg TABLET PO PRN ×2 (08:37→15:59)
[2019-07-10] MEDS: Aspirin Enteric Coated 325 MG Tablet PO SCH (08:37)
[2019-07-10] MEDS: Cyanocobalamin (B-12) 1,000 MCG TABLET PO SCH (08:37)
[2019-07-10] MEDS: Carbidopa/Levodopa 25/100 TABLET PO SCH ×3 (08:37→19:45)
[2019-07-10] MEDS: rOPINIRole 1 MG TABLET PO SCH ×3 (08:37→19:45)
[2019-07-10] MEDS: Mirtazapine 15 MG TABLET PO SCH (19:45)
[2019-07-11] MEDS: *HR* HYDROcodone/Acet 5/325 mg TABLET PO PRN ×2 (03:58→08:28)
[2019-07-11] MEDS: Ascorbic Acid 500 MG TABLET PO SCH (06:15)
[2019-07-11] MEDS: Fluticasone Propionate Nasal 50 MCG/SPRAY BOTTLE NS SCH (08:27)
[2019-07-11] MEDS: Finasteride 5 MG TABLET PO SCH (08:28)
[2019-07-11] MEDS: Aspirin Enteric Coated 325 MG Tablet PO SCH (08:28)
[2019-07-11] MEDS: rOPINIRole 1 MG TABLET PO SCH ×3 (08:28→21:31)
[2019-07-11] MEDS: Carbidopa/Levodopa 25/100 TABLET PO SCH ×3 (08:28→21:31)
[2019-07-11] MEDS: Cyanocobalamin (B-12) 1,000 MCG TABLET PO SCH (08:28)
[2019-07-11] MEDS: *HR* Enoxaparin 40 MG/0.4 ML SYRINGE SQ SCH (17:22)
[2019-07-11] MEDS: Mirtazapine 15 MG TABLET PO SCH (21:32)
[2019-07-12] MEDS: Ascorbic Acid 500 MG TABLET PO SCH (05:16)
[2019-07-12] MEDS: *HR* Enoxaparin 40 MG/0.4 ML SYRINGE SQ SCH (05:16)
[2019-07-12] MEDS: *HR* HYDROcodone/Acet 5/325 mg TABLET PO PRN ×2 (05:21→20:36)
[2019-07-12 05:42] LABS: Basophils % 0.3 %; Eosinophils # 0.2 K/mcL (0.0-0.6); Eosinophils % 2.8 %; Hematocrit 32.1 % (37.5-50.1); Hemoglobin 10.6 g/dL (12.9-16.9); Immature Granulocytes % 0.4 % (0-4); Lymphocytes # 1.2 K/mcL (0.6-4.6); Lymphocytes % 15.9 %; Mean Corpuscular Hemoglobin 30.8 pg (28.0-33.3); Mean Corpuscular Volume 93.3 fL (83.0-100.0); Mean Platelet Volume 9.1 fL (9.4-12.4); Monocytes # 0.5 K/mcL (0.0-1.3); Monocytes % 6.4 %; Neutrophils # 5.6 K/mcL (1.6-8.9); Platelet Count 264 K/mcL (140-400); Red Blood Count 3.44 M/mcL (4.19-5.50); Red Cell Distribution Width 13.6 % (11.5-14.5); Segmented Neutrophils % 74.2 %; White Blood Count 7.5 K/mcL (4.3-11.1)
[2019-07-12 07:33] LABS: BUN/Creatinine Ratio 19 (6-26); Blood Urea Nitrogen 17 mg/dL (8-23); Calcium 8.3 mg/dL (8.6-10.3); Carbon Dioxide 30 mEq/L (23-29); Chloride 103 mEq/L (98-107); Glucose 94 mg/dL (70-105); Osmolality,Calculated 285 (280-300); Potassium 3.8 mEq/L (3.5-5.1); Sodium 137 mEq/L (136-145); eGFR For African Americans > 60 (> 60); eGFR For Non-African Americans > 60 (> 60)
[2019-07-12] MEDS: Fluticasone Propionate Nasal 50 MCG/SPRAY BOTTLE NS SCH (08:16)
[2019-07-12] MEDS: Finasteride 5 MG TABLET PO SCH (08:19)
[2019-07-12] MEDS: rOPINIRole 1 MG TABLET PO SCH ×3 (08:20→20:36)
[2019-07-12] MEDS: Aspirin Enteric Coated 325 MG Tablet PO SCH (08:20)
[2019-07-12] MEDS: Cyanocobalamin (B-12) 1,000 MCG TABLET PO SCH (08:20)
[2019-07-12] MEDS: Carbidopa/Levodopa 25/100 TABLET PO SCH ×3 (08:20→20:36)
[2019-07-12] MEDS: Mirtazapine 15 MG TABLET PO SCH (20:36)
[2019-07-13] MEDS: *HR* HYDROcodone/Acet 5/325 mg TABLET PO PRN ×2 (05:06→20:09)
[2019-07-13] MEDS: *HR* Enoxaparin 40 MG/0.4 ML SYRINGE SQ SCH (05:28)
[2019-07-13] MEDS: Ascorbic Acid 500 MG TABLET PO SCH (05:28)
[2019-07-13] MEDS: Fluticasone Propionate Nasal 50 MCG/SPRAY BOTTLE NS SCH (08:17)
[2019-07-13] MEDS: Finasteride 5 MG TABLET PO SCH (08:17)
[2019-07-13] MEDS: rOPINIRole 1 MG TABLET PO SCH ×3 (08:17→20:09)
[2019-07-13] MEDS: Carbidopa/Levodopa 25/100 TABLET PO SCH ×3 (08:18→20:10)
[2019-07-13] MEDS: Cyanocobalamin (B-12) 1,000 MCG TABLET PO SCH (08:18)
[2019-07-13] MEDS: Aspirin Enteric Coated 325 MG Tablet PO SCH (08:18)
[2019-07-13] MEDS: Mirtazapine 15 MG TABLET PO SCH (20:10)
[2019-07-14] MEDS: *HR* HYDROcodone/Acet 5/325 mg TABLET PO PRN ×3 (03:59→20:49)
[2019-07-14] MEDS: *HR* Enoxaparin 40 MG/0.4 ML SYRINGE SQ SCH (06:36)
[2019-07-14] MEDS: Ascorbic Acid 500 MG TABLET PO SCH (06:36)
[2019-07-14] MEDS: Finasteride 5 MG TABLET PO SCH (08:00)
[2019-07-14] MEDS: Aspirin Enteric Coated 325 MG Tablet PO SCH (08:00)
[2019-07-14] MEDS: rOPINIRole 1 MG TABLET PO SCH ×3 (08:01→20:49)
[2019-07-14] MEDS: Cyanocobalamin (B-12) 1,000 MCG TABLET PO SCH (08:01)
[2019-07-14] MEDS: Fluticasone Propionate Nasal 50 MCG/SPRAY BOTTLE NS SCH (08:01)
[2019-07-14] MEDS: Carbidopa/Levodopa 25/100 TABLET PO SCH ×3 (08:01→20:49)
[2019-07-14] MEDS: Mirtazapine 15 MG TABLET PO SCH (20:48)
[2019-07-15] MEDS: Ascorbic Acid 500 MG TABLET PO SCH (05:35)
[2019-07-15] MEDS: *HR* Enoxaparin 40 MG/0.4 ML SYRINGE SQ SCH (05:35)
[2019-07-15 06:27] LABS: Basophils % 0.5 %; Eosinophils # 0.2 K/mcL (0.0-0.6); Eosinophils % 4.2 %; Hematocrit 33.5 % (37.5-50.1); Hemoglobin 11.2 g/dL (12.9-16.9); Immature Granulocytes % 0.3 % (0-4); Lymphocytes # 1.1 K/mcL (0.6-4.6); Lymphocytes % 19.4 %; Mean Corpuscular HGB Conc 33.4 g/dL (31.6-35.5); Mean Corpuscular Hemoglobin 31.1 pg (28.0-33.3); Mean Corpuscular Volume 93.1 fL (83.0-100.0); Mean Platelet Volume 9.4 fL (9.4-12.4); Monocytes # 0.4 K/mcL (0.0-1.3); Neutrophils # 3.9 K/mcL (1.6-8.9); Platelet Count 275 K/mcL (140-400); Red Cell Distribution Width 13.5 % (11.5-14.5); Segmented Neutrophils % 68.6 %; White Blood Count 5.7 K/mcL (4.3-11.1)
[2019-07-15 06:50] LABS: BUN/Creatinine Ratio 13 (6-26); Blood Urea Nitrogen 10 mg/dL (8-23); Calcium 8.5 mg/dL (8.6-10.3); Carbon Dioxide 29 mEq/L (23-29); Chloride 105 mEq/L (98-107); Glucose 90 mg/dL (70-105); Osmolality,Calculated 285 (280-300); Potassium 3.6 mEq/L (3.5-5.1); Sodium 138 mEq/L (136-145); eGFR For African Americans > 60 (> 60); eGFR For Non-African Americans > 60 (> 60)
[2019-07-15] MEDS: Carbidopa/Levodopa 25/100 TABLET PO SCH ×3 (09:49→19:41)
[2019-07-15] MEDS: rOPINIRole 1 MG TABLET PO SCH ×3 (09:49→19:41)
[2019-07-15] MEDS: Finasteride 5 MG TABLET PO SCH (09:49)
[2019-07-15] MEDS: Cyanocobalamin (B-12) 1,000 MCG TABLET PO SCH (09:50)
[2019-07-15] MEDS: Fluticasone Propionate Nasal 50 MCG/SPRAY BOTTLE NS SCH (09:55)
[2019-07-15] MEDS: Aspirin Enteric Coated 325 MG Tablet PO SCH (09:55)
[2019-07-15] MEDS: Mirtazapine 15 MG TABLET PO SCH (19:41)
[2019-07-15] MEDS: *HR* HYDROcodone/Acet 5/325 mg TABLET PO PRN (19:41)
[2019-07-16] MEDS: *HR* Enoxaparin 40 MG/0.4 ML SYRINGE SQ SCH (06:27)
[2019-07-16] MEDS: Ascorbic Acid 500 MG TABLET PO SCH (06:27)
[2019-07-16] MEDS: rOPINIRole 1 MG TABLET PO SCH ×3 (07:45→20:35)
[2019-07-16] MEDS: Carbidopa/Levodopa 25/100 TABLET PO SCH ×3 (07:45→20:35)
[2019-07-16] MEDS: Finasteride 5 MG TABLET PO SCH (07:45)
[2019-07-16] MEDS: Cyanocobalamin (B-12) 1,000 MCG TABLET PO SCH (07:45)
[2019-07-16] MEDS: Aspirin Enteric Coated 325 MG Tablet PO SCH (07:52)
[2019-07-16] MEDS: Fluticasone Propionate Nasal 50 MCG/SPRAY BOTTLE NS SCH (07:52)
[2019-07-16] MEDS: Mirtazapine 15 MG TABLET PO SCH (20:35)
[2019-07-16] MEDS: *HR* HYDROcodone/Acet 5/325 mg TABLET PO PRN (20:43)
[2019-07-17] MEDS: Ascorbic Acid 500 MG TABLET PO SCH (05:57)
[2019-07-17] MEDS: *HR* Enoxaparin 40 MG/0.4 ML SYRINGE SQ SCH (05:57)
[2019-07-17] MEDS: Fluticasone Propionate Nasal 50 MCG/SPRAY BOTTLE NS SCH (19:29)
[2019-07-17] MEDS: Aspirin Enteric Coated 325 MG Tablet PO SCH (19:29)
[2019-07-17] MEDS: Finasteride 5 MG TABLET PO SCH (19:30)
[2019-07-17] MEDS: rOPINIRole 1 MG TABLET PO SCH ×2 (19:30→19:38)
[2019-07-17] MEDS: Carbidopa/Levodopa 25/100 TABLET PO SCH ×2 (19:30→19:38)
[2019-07-17] MEDS: Cyanocobalamin (B-12) 1,000 MCG TABLET PO SCH (19:31)
[2019-07-17] MEDS: Mirtazapine 15 MG TABLET PO SCH (19:38)
[2019-07-17] MEDS: *HR* HYDROcodone/Acet 5/325 mg TABLET PO PRN (19:43)
[2019-07-18] MEDS: Ascorbic Acid 500 MG TABLET PO SCH (05:42)
[2019-07-18] MEDS: *HR* Enoxaparin 40 MG/0.4 ML SYRINGE SQ SCH (05:42)
[2019-07-18] MEDS: Fluticasone Propionate Nasal 50 MCG/SPRAY BOTTLE NS SCH (08:04)
[2019-07-18] MEDS: Finasteride 5 MG TABLET PO SCH (08:06)
[2019-07-18] MEDS: Aspirin Enteric Coated 325 MG Tablet PO SCH (08:06)
[2019-07-18] MEDS: Carbidopa/Levodopa 25/100 TABLET PO SCH ×3 (08:06→19:52)
[2019-07-18] MEDS: *HR* HYDROcodone/Acet 5/325 mg TABLET PO PRN (08:06)
[2019-07-18] MEDS: Cyanocobalamin (B-12) 1,000 MCG TABLET PO SCH (08:07)
[2019-07-18] MEDS: rOPINIRole 1 MG TABLET PO SCH ×3 (08:07→19:52)
[2019-07-18] MEDS: Mirtazapine 15 MG TABLET PO SCH (19:52)
[2019-07-19] MEDS: *HR* HYDROcodone/Acet 5/325 mg TABLET PO PRN (02:49)
[2019-07-19] MEDS: Ascorbic Acid 500 MG TABLET PO SCH (05:48)
[2019-07-19] MEDS: *HR* Enoxaparin 40 MG/0.4 ML SYRINGE SQ SCH (05:48)
[2019-07-19 07:42] VITALS: BP 139/73
[2019-07-19] MEDS: Cyanocobalamin (B-12) 1,000 MCG TABLET PO SCH (08:34)
[2019-07-19] MEDS: rOPINIRole 1 MG TABLET PO SCH ×2 (08:34→15:05)
[2019-07-19] MEDS: Carbidopa/Levodopa 25/100 TABLET PO SCH ×2 (08:34→15:05)
[2019-07-19] MEDS: Finasteride 5 MG TABLET PO SCH (08:34)
[2019-07-19] MEDS: Aspirin Enteric Coated 325 MG Tablet PO SCH (08:34)
[2019-07-19] MEDS: Fluticasone Propionate Nasal 50 MCG/SPRAY BOTTLE NS SCH (08:36)
== END 2019-07-19 16:09 | DRG 560 ==
LOC: INPPIK 14:44
PROVIDERS: ADMIT Internal Medicine; ATTEND Internal Medicine